=== PATIENT | male | born 1940 | race Caucasian/White ===

== ENCOUNTER 2016-06-23 05:04 | Inpatient (IN) | payer MEDICARE, BC ==
[2016-06-22 13:07] LABS: HEMATOCRIT 40.8 % (42.0-54.0); HEMOGLOBIN 13.9 g/dL (13.5-17.5); MCH 34.7 pg (26.0-34.0); MCHC 34.1 g/dL (31.0-37.0); MCV 101.7 fL (80.0-100.0); MEAN PLATELET VOLUME 9.3 fL (7.4-10.4); RBC 4.01 10x6/uL (4.20-6.10); RDW 16.7 % (11.5-14.5); WBC 9.8 10x3/uL (4.8-10.8)
[2016-06-22 13:15] LABS: ALBUMIN 3.6 g/dL (3.4-5.0); ANION GAP 12.5 mmol/L (8-16); APPEARANCE CLEAR (CLEAR); BILIRUBIN NEGATIVE (NEGATIVE); BILIRUBIN - TOTAL 0.67 mg/dL (0.2-1.3); CALCIUM 8.9 mg/dL (8.5-10.1); COLOR YELLOW (YELLOW); CREATININE - SERUM 1.2 mg/dL (0.6-1.3); GLUCOSE NEGATIVE (NEGATIVE); KETONE NEGATIVE (NEGATIVE); LEUKOCYTE ESTERASE NEGATIVE (NEGATIVE); NITRITE NEGATIVE (NEGATIVE); POTASSIUM - SERUM 4.5 mmol/L (3.5-5.1); PROTEIN NEGATIVE (NEGATIVE); PROTEIN - SERUM 7.2 g/dL (6.4-8.2); UROBILINOGEN NORMAL (NORMAL)
[2016-06-22 13:18] LABS: INR 1.13 (0.85-1.17); PROTIME 14.3 SECONDS (11.6-15.0)
[2016-06-23] VITALS (46 sets, daily range): BP systolic 80–118; BP diastolic 45–81; Ht 172.7 cm; Wt 88.7 kg
[~2016-06-23] VITALS: Ht 172.7 cm; Wt 88.7 kg
[~2016-06-23 05:04] MED LIST: ALENDRONATE SOD70 MG PO; ANORO ELLIPTA1 EACH INH; BAYER CHEWABLE81 MG PO; CARAFATE1 G PO; CO Q-10200 MG PO; FISH OIL 1,2001 CAP PO; FLOMAX0.4 MG PO; GLUCOPHAGE850 MG PO; LISINOPRIL2.5 MG PO; LOPRESSOR25 MG PO; MAGNESIUM OXID420 MG PO; OMEGA-3100 MG PO; OMEPRAZOLE20 M1 PO; PROSCAR5 MG PO; PROTONIX40 MG PO; REFRESH TEARS15 ML EACH EYE; TESSALON PERLE100 MG PO; VITAMIN B-121000 MCG PO; VITAMIN D31000 UNIT PO; ZANTAC300 MG PO; ZOCOR40 MG PO
--- NOTE | 2016-06-23 13:11 | NUR ---
RECIEVED PT FROM OR. SEDATED, OPENS EYES TO VOICE. ON 10L SIMPLE MASK, RIGHT DL SC DRESSING C/D/I. INFUSING PER FLOWSHEET. RIGHT THORACTOMY DRESSING C/D/I. RIGHT LATERAL LOWER CHEST TUBE SITE C/D/I. ANT AND POST CT DRAINGING SANG DRAINAGE. ATTACHED TO 20CM SUCTION. LEFT RADIAL A-LINE IN PLACE WITH GOOD WAVE FORM. WRIST PROTECTOR IN PLACE. EXT WITH GOOD SENSTAION. TEDS/SCDS ON. SKIN ASSESSMENT WNL. ON AIR OVERLAY MATTRESS. WILL RECOVER PT UNTIL AWAKE. CALL LIGHT IN REACH. BED IN LOW POSITION.
--- NOTE | 2016-06-23 14:00 | NUR ---
FAMILY AT BEDSIDE. DR. HARVEY PROVIDED UPDATE.
--- NOTE | 2016-06-23 14:36 | NUR ---
Is the patient Alert and Oriented? No 0 * How many steps to enter\exit or inside your home? 2 0 * PCP [facility] MD 0 * Pharmacy FROM THE DE 0 * Preadmission Environment Home Alone 0 * ADLs Independent 0 * Equipment None 0 * List name and contact numbers for known caregivers / representatives who currently or will assist patient after discharge: SISTER: BARBI HARVEY [phone] DAUGHTER: SUZETTE PRIEST [phone] * Community resources currently utilized None 0 * Additional services required to return to the preadmission environment? No 0 * Can the patient safely return to the preadmission environment? Yes 0 * Has this patient been hospitalized within the prior 30 days at any hospital? No PATIENT IS POST OP LUNG RESECTION. HE IS STILL DROWSY. I SPOKE WITH HIS DAUGHTER, SUZETTE AND HIS SISTER, BARBI. PATIENT LIVES AT HOME ALONE. HIS SISTER STATES HE MAY COME STAY WITH HER AT DISCHARGE IF NEEDED. THEY TELL ME HE GOES TO MD AT THE [facility] CLINIC AND GETS HIS MEDS FROM THE [facility]. PATIENT HAS A KNEE BRACE HE USES NEEDED. HE HAS NEVER HAD HOME HEALTH. HER ARE 2 STEPS TO ENTER HIS SISTER'S HOME AND 4 STEPS TO ENTER HIS HOME. THEY ARE NOT AWARE OF ANY DISCHARGE NEEDS AT THIS TIME. CM TO FOLLOW AND EVALUATE AT DISCHARGE.
--- NOTE | 2016-06-23 16:00 | NUR ---
TURNED AND REPOSITIONED FOR COMFORT. CALL LIGHT IN REACH. BED IN LOW POSITION. WILL CONTINUE TO ASSESS.
--- NOTE | 2016-06-23 18:00 | NUR ---
NO CHANGES NOTED AT THIS TIME. WILL CONTINUE TO ASSESS.
--- NOTE | 2016-06-23 19:20 | NUR ---
ASSESSMENT COMPLETED. SEE ASSESSMENT FLOWSHEET. LETHARGIC BUT AWAKENS EASILY AND FOLLOWS COMMANDS. CAN MOVE ALL EXTREMITIES. RT SC CVL INFUSING MULTIPLE GTTS. WILL MONITOR.
--- NOTE | 2016-06-23 20:40 | NUR ---
2100 MEDS GIVEN WITH SIPS OF WATER. TURNED AND REPOSITIONED TO RT SIDE AFTER PULLING UP IN BED. I.S. DONE UP TO 1000ML. WILL MONITOR.
--- NOTE | 2016-06-23 21:45 | NUR ---
VISITOR AT BEDSIDE. UPDATE GIVEN. INFORMED TO SLOW DOWN ON ICE CONSUMPTION. WILL MONITOR.
--- NOTE | 2016-06-23 23:01 | NUR ---
NEW BAG OF WENDI GTT HUNG. EYES CLOSED UPON ENTERING. REASSESSMENT COMPLETED. SEE ASSESSMENT FLOWSHEET. WILL MONITOR.
[2016-06-24] VITALS (93 sets, daily range): BP systolic 82–151; BP diastolic 41–78
--- NOTE | 2016-06-24 00:10 | NUR ---
AWOKE. TURNED AND REPOSITIONED TO SUPINE POSITION. ICE CHIPS GIVEN PER REQUEST. IV PROTONIX SLOWLY GIVEN. WILL MONITOR.
--- NOTE | 2016-06-24 00:22 | NUR ---
DECREASED WENDI GTT TO 18ML/HR.
--- NOTE | 2016-06-24 02:15 | NUR ---
REPLACED O2 SENSOR ONTO FINGER. AWOKE. WANTING MORE ICE CHIPS. HALF CUP ICE CHIPS GIVEN. WILL CONTINUE TO MONITOR.
--- NOTE | 2016-06-24 04:00 | NUR ---
DECREASED WENDI GTT TO 15ML/HR. ICE GIVEN. WILL MONITOR.
--- NOTE | 2016-06-24 05:58 | NUR ---
AM LAB SPECIMEN DRAWN AND TAKEN TO LAB. PULLED UP IN BED AND TURNED TO RT SIDE. AM CARAFATE GIVEN. WILL MONITOR.
[2016-06-24 06:10] LABS: HEMOGLOBIN 11.4 g/dL (13.5-17.5); MCHC 33.5 g/dL (31.0-37.0); MCV 101.5 fL (80.0-100.0); MEAN PLATELET VOLUME 9.1 fL (7.4-10.4); RBC 3.35 10x6/uL (4.20-6.10); RDW 16.7 % (11.5-14.5); WBC 9.3 10x3/uL (4.8-10.8)
[2016-06-24 06:43] LABS: ALBUMIN 2.6 g/dL (3.4-5.0); ALKALINE PHOSPHATASE 49 U/L (46-116); ALT (SGPT) 23 U/L (10-68); CALC OSMOLALITY 282 mosm/kg (275-300); CALCIUM 7.2 mg/dL (8.5-10.1); CARBON DIOXIDE 27.2 mmol/L (21.0-32.0); CHLORIDE - SERUM 103 mmol/L (98-107); CREATININE - SERUM 0.9 mg/dL (0.6-1.3); GLUCOSE 190 mg/dL (74-106); POTASSIUM - SERUM 4.3 mmol/L (3.5-5.1); SODIUM 138 mmol/L (136-145); UREA NITROGEN 18 mg/dL (7-18); eGFR NON AFRICAN AMERICAN 88 mL/min (90-120)
--- NOTE | 2016-06-24 07:00 | NUR ---
REC'D CARE OF PT. A&O X3.
--- NOTE | 2016-06-24 07:50 | NUR ---
INITIAL ASSESSMENT COMPLETED. EPIDURAL. DRSG CD&I. BRENDA.FOLLOWS COMMANDS. WITH GOOD SENSATION IN LOWER EXT.PPP. DENIES PAIN. O2 AT 3L VIA NC. SATTING 96%. RR 24 EVEN AND UNLABORED. RIGHT THORACOTOMY INCISION. DRSG CD&I. RIGHT LATERAL CT X2 TO 20 CM SUCTION. INDICATOR + FOR SUCTION. SEROUSSANGEOUS RETURN X2 CANISTERS. EDISONG CD&I. TEDS.SCD'S. CRITICORE CORTES. PATENT WITH ADEQUATE URINE OUTPUT. CLWR. CPOC.
--- NOTE | 2016-06-24 09:21 | NUR ---
FAMILY AT BEDSIDE. UPDATED.
--- NOTE | 2016-06-24 10:23 | NUR ---
DR. KELLY AT BEDSIDE. HE CHECKED EPIDURAL AND CHANGED BASIL RATE TO 5 AND BOLUS AMOUNT TO 4.
--- NOTE | 2016-06-24 11:21 | NUR ---
DR. HARVEY AT BEDSIDE.
--- NOTE | 2016-06-24 12:13 | NUR ---
FAMILY AT BEDSIDE. UPDATED.
--- NOTE | 2016-06-24 12:21 | HP ---
PATIENT: CHARITY PALMER MEDICAL RECORD: [id number] ACCOUNT: [id number] LOCATION:[place] [address] : 41 ADMISSION DATE: 06/23/16 HISTORY AND PHYSICAL EXAMINATION CHARITY Hawley (75yo, M) ID# [id number]. Date/Time05/15/2016 11:[id number] Dept.[facility] [place]FREDDIE STAHL MDInsuranceMed Primary: MEDICARE B-AR: [employer] MEDICARE Insurance # : [id number] Referring Provider Name : TAMEKA MEHTA Employer Name : RETIRED Med Secondary: BCBS-AR: [employer] Insurance # : [id number] Employer Name : RETIRED Prescription: CMX - Member is eligible. Patient's Care Team Referring Provider (): TAMEKA MEHTA: [address] [place] [phone], , Referring Provider: TAMEKA MEHTA MD: [address] [place] [id number], , Patient's Pharmacies [facility] [address] (ERX): [phone] [facility] [id number], , Chief Complaint Lung cancer Problems Reviewed Problems Primary malignant neoplasm of right upper lobe of lung Squamous cell carcinoma, Right - upper lobe right lung Tobacco user Obstructive sleep apnea syndrome Hypertensive disorder Coronary arteriosclerosis Allergic rhinitis Moderate chronic obstructive pulmonary disease Gastroesophageal reflux disease Gastric ulcer Irritable bowel syndrome Osteoarthritis Osteoporosis Cough Medications Reviewed Medications alendronate 70 mg tablet Take 1 tablet(s) every week by oral route.04/10/[facility] JonesAnoro Ellipta 62.5 mcg-25 mcg/actuation powder for inhalation Inhale 1 puff(s) every day by inhalation route.05/15/16 Johana Stahl MDbenzonatate 100 mg eqnjist36/15/16 filledCaremarkcetirizine 10 mg tablet Take 1 tablet(s) every day by oral route.04/10/16 enteredSara Jonesfinasteride 5 mg tablet Take 1 tablet(s) every day by oral route.05/02/16 filledCaremarkFish Oil 100 mg-160 mg-1,000 mg capsule Take by oral route.04/05/16 enteredKattramaine Wilsonfluticasone 50 mcg/actuation nasal spray,aubxgresvn07/10/16 filledCaremarklisinopril 2.5 mg tablet HISTORY AND PHYSICAL [id number] CHARITY PALMER Take 1 tablet(s) every day by oral route.04/10/16 enteredSarah Jonesmagnesium 420mg daily04/10/16 enteredSarah JonesmetFORMIN 850 mg dnyxiv93/19/16 filledCaremarkmetoprolol tartrate 25 mg jrsemq71/18/16 filledCaremarkomeprazole 20 mg capsule,delayed pkmgpho86/01/16 filledCaremarkraNITIdine 300 mg /29/16 filledCaremarksimvastatin 40 mg dixekt66/07/16 filledCaremarksucralfate 1 gram jvheiw33/14/16 filledCaremarktamsulosin 0.4 mg iltdqen93/18/16 filledCaremarkAllergies Reviewed Allergies NKDAPast Medical History Reviewed Past Medical History Back Pain: Y Cancer: Y Coronary Artery Disease: Y - status post TPA in 2000 Diabetes: Y GERD: Y High Blood Pressure: Y Hyperlipidemia: Y Peptic Ulcer (stomach or duodenal): Y Sleep Apnea (CPAP/BPAP/O2): Y - CPAP Notes: IBS Surgical History Reviewed Surgical History Other - 2013 - right shoulder Other - 2013 - left hip Other - 2012 - right hip Other - 2005 - right knee Family History Reviewed Family History Mother- Malignant neoplastic diseaseFather- Heart disease - aneurysmBrother- Malignant neoplastic diseaseSocial History Reviewed Social History Smoking Status: Current every day smoker Smoker (1 PPD) (Notes: 50 years) Vitals 05/15/2016 11:32 am Age:75Wt:205 lbs BP:147/80 Ht:5 ft 8 inPulse:83 bpm RR:85M6Xyo:98% Room Air at RestBMI:31.2HPI 75-year-old white male with history of IBS, osteoporosis, OA, DM II, CAD - s/p [place] and TPA, Prostate disease, GERD, - s/p EGD and dilation, JEANNE on CPAP, and dx with Lung CA with RUL squamous cell CA and here for preop evaluation. Patient was diagnosed in March 2016 with lung biopsy done of [facility], seen by Dr. Mehta with PET scan done already and on CTX x 5, and follow-up PET scan J anuary 3, 2015. Patient had been smoking since age 15, one pack per day without secondhand smoke, patient had pneumonia as a teenager none recently and no history of bronchitis, no history of TB, no history of CHF, no history of PE or DVT, and no family h i story lung disease, no history of asbestos or chemicals. The patient does have history of sleep apnea on CPAP he uses 6-7 hours a night and seems to be refreshed in a.m. PFTs done on 04/04/16 shows FEV1 1.88 L or 69%, improved 8% with BD to 2.03 L or 75%, F EV1/FVC 50%, TLC 5.77 L or 83%, DLCO 16.9 mL/mmHg/min or 80%. CXR 04/25/16 shows no active disease viewed on PACs. Nuclear medicine quantitative lung scan showed left upper lung 27.9%, left lower lobe 26.8% (total Lt lung 54.6%) and right upper lung 14.3% , right lower lung 31.1% (total Rt 45.4%). Patient has increased shortness of breath over last few years, patient states worse HISTORY AND PHYSICAL [id number] PALMER,NASH with exercise or inclines, no nocturnal symptoms, weather changes does not adversely affect breathing, no PND no orthopnea, has oc casional leg edema and sleeps on one pillow, denies any wheezing, no chest pain, no pleurisy. Patient has chronic cough mostly nonproductive except for phlegm, no hemoptysis. Patient has some reflux and taking omeprazole or ranitidine. No fever, chills or night sweats, no weight loss. ROS Constitutional: Constitutional: no significant weight gain or loss and no fever, night sweats, or exercise intolerance. Eyes: Eyes: no irritation or vision change and dry eyes. ENMT: Ears: no ear pain and difficulty hearing. Nose: no frequent nosebleeds and nose/sinus problems. Mouth/Throat: no snoring, sore throat, bleeding gums, mouth ulcers, oral abnormalities, or teeth problems and dry mouth. Neck: Neck: no jugular vein distension or swollen glands. Cardiovascular: Cardiovascular: no palpitations, chest pain, arm pain on exertion, shortness of breath when lying down, or known heart murmur and shortness of breath when walking. Respiratory: Respiratory: no cough, wheezing, or coughing up blood and shortness of breath and sleep apnea. Gastrointestinal: Gastrointestinal: no vomiting, diarrhea, nausea, constipation, or abdominal pain and normal appetite and not vomiting blood. Genitourinary: Genitourinary: no incontinence, hematuria, or difficulty urinating and incr eased urinary frequency. Musculoskeletal: Musculoskeletal: no muscle aches or weakness, no swelling in the extremities, and arthralgias/joint pain and back pain. Integumentary: Skin: no jaundice, rashes, or abnormal mole and dry skin. Neurologic: Neurologic: no weakness, numbness, seizures, dizziness, headaches, or loss of consciousness and restless legs. Psychiatric: Psych: no depression, sleep disturbances, or alcohol abuse and feeling safe in relationship. Endocrine: Endocrine: no fatigue and hair loss. Hematologic/Lymphatic: Hematologic/Lymphatic no swollen glands and easy bruising. Allergic/Immunologic: Allergy/Immunologic: no itching, hives, or frequent sneezing and runny nose and sinus pressure. Documents for Discussion N/A Physical Exam Patient is a 75-year-old male. Constitutional: General Appearance: well developed and overweight. Level of Distress: no acute distress. Ambulation: ambulating normally. HISTORY AND PHYSICAL [id number] PALMERCHARITY Ears: Cerumen negative. Canal: no erythema or swelling. Tympanic Membrane: no bulging or fluid and perforated. Nasal: Nasal Mucosa: edematous and irritated and no discharge. Septum: not markedly deformed. Oropharynx: Lips, Teeth, and Gums normal lips, upper dentures, and lower dentures. Oral Mucosa no ulcer, mass, inflammation, swelling, or leukoplakia and moist. Palate: normal hard palate and soft palate. Tongue: no erythema, lesions, enlargement, or swelling. Tonsils: no enlargement or lesions. Posterior Pharynx no enlargement, erythema, exudate, ulcers, mass, or white patches and cobblestoning. Neck: Neck: supple, trachea midline, no masses, and Full ROM. Thyroid: no enlargement or nodules and non-tender. Jugular Veins: no jugular venous distention or jolly a waves present and normal jugular venous pressure. Lungs: Respiratory effort : unlabored. Inspection: normal curve and chest wall expansion; no deformity, tenderness, or swelling; and tactile fremitus present and equal on both sides. Auscultation: no wheezing, rales/crackles, or rhonchi and decreased breath sounds,bilateral,bases. Percussion: no dullness, flatness, or hyperresonance. Cardiovascular: Precordial Exam: non displaced focal PMI. Heart Rate And Rhythm: normal heart rate and rhythm. Heart Sounds: no gallop, click, physiologically split S2, or pericardial friction rub and normal s1. Systolic Murmur: no systolic murmurs. Diastolic Murmur: no diastolic murmurs. Observation/Palpation of peripheral vascular system: no cyanosis or varicosity changes and normal dorsalis pedis and posterior tibialis. Abdomen: Inspection and Palpa tion: no tenderness or masses and soft and non-distended. Liver: non-tender and no hepatomegaly. Spleen: non-tender and no splenomegaly. Bowel Sounds: normal and no abdominal bruits. Lymphatic: no cervical lymph enlargement, axillary LAD, inguinal LAD, fe moral LAD, supraclavicular LAD, or popliteal LAD. Musculoskeletal:: Motor Strength and Tone: normal bulk, tone, and motor strength. Gait and Station: normal gait, station, and tandem gait. Joints, Bones, and Muscles: no contractures, malalignment, tenderne ss, scoliosis, kyphosis, or bony abnormalities and normal movement of all extremities. Extremities: Inspection/Palpation of digits and nails: no clubbing, cyanosis, petechiae, ischemia, edema, or nodular lesions. Skin: Inspection and palpation: no rash, lesions, jaundice, ulcer, erythema, or induration and normal turgor. Neurologic: Mental Status/Orientation: oriented to person, place, problem/situation, and time. Mood/Affect: normal mood and affect. Sensation sensation normal. Cranial Nerves cranial nerves II - XII intact. Deep Tendon Reflexes upper extremities positive and lower extremities positive. Assessment / Plan 1. Primary malignant neoplasm of right upper lobe of lung - NSCLC Lung CA w ith RUL squamous cell CA diagnosed in March 2016 with lung biopsy done of [facility], seen by Dr. Mehta with PET scan done already and on CTX x 5, and follow-up PET scan June 06, 2015. PFTs done on 04/04/16 shows FEV1 1.88 L or 69%, improved 8% w i th HISTORY AND PHYSICAL [id number] DO SPENCERYLE BD to 2.03 L or 75%, FEV1/FVC 50%, TLC 5.77 L or 83%, DLCO 16.9 mL/mmHg/min or 80%. CXR 04/25/16 shows no active disease viewed on PACs. Nuclear medicine quantitative lung scan showed left upper lung 27.9%, left lower lobe 26.8% (total Lt lung 54.6%) a nd right upper lung 14.3%, right lower lung 31.1% (total Rt 45.4%). Should tolerate RULobectomy from pulmonary standpoint. Obtain CT/PET results. C34.11: Malignant neoplasm of upper lobe, right bronchus or lung 2. Squamous cell carcinoma - NSCLC Lung CA with RUL squamous cell CA diagnosed in March 2016 with lung biopsy done of [facility], seen by Dr. Mehta with PET scan done already and on CTX x 5, and follow-up PET scan June 06, 2015. PFTs done on 04/04/16 shows FEV1 1.88 L or 6 9 %, improved 8% with BD to 2.03 L or 75%, FEV1/FVC 50%, TLC 5.77 L or 83%, DLCO 16.9 mL/mmHg/min or 80%. CXR 04/25/16 shows no active disease viewed on PACs. Nuclear medicine quantitative lung scan showed left upper lung 27.9%, left lower lobe 26.8% (total Lt lung 54.6%) and right upper lung 14.3%, right lower lung 31.1% (total Rt 45.4%). Should tolerate RULobectomy from pulmonary standpoint. Obtain CT/PET results. C80.1: Malignant (primary) neoplasm, unspecified 3. Moderate chronic obstructive pulmonary disease - PFTs done on 04/04/16 shows FEV1 1.88 L or 69%, improved 8% with BD to 2.03 L or 75%, FEV1/FVC 50%, TLC 5.77 L or 83%, DLCO 16.9 mL/mmHg/min or 80%. CXR 04/25/16 shows no active disease viewed on PACs. Nuclear medicine quantitative lung scan s howed left upper lung 27.9%, left lower lobe 26.8% (total Lt lung 54.6%) and right upper lung 14.3%, right lower lung 31.1% (total Rt 45.4%). Add Anoro qd, and check A1AT level. J44.9: Chronic obstructive pulmonary disease, unspecified Anoro Ellipta 62.5 mcg-25 mcg/actuation powder for inhalation - Inhale 1 puff(s) every day by inhalation route. Qty: 1 unit(s) Refills: 5 Pharmacy: N/A [id number] (AAT) PHENOTYPE, SERUM [id number] (AAT), QUANTITATIVE, SERUM 4. Allergic rhinitis - On Flonase qd, Afrin bid, and saline nasal. J30.9: Allergic rhinitis, unspecified ALLERGIES: CARE INSTRUCTIONS MANAGING YOUR ALLERGIES: CARE INSTRUCTIONS 5. Cough - On Tessalon tid and add Mucinex DM bid. R05: Cough COUGH: CARE INSTRUCTIONS 6. Gastroesophageal reflux disease - On omeprazole 20 mg daily, ranitidine 300 mg daily at bedtime, Carafate 1 g 4 times a day. K21.9: Gastro-esophageal reflux disease without esophagitis GASTROESOPHAGEAL REFLUX DISEASE (GERD): CARE INSTRUCTIONS 7. Obstructive sleep apnea syndrome - The patient does have history of sleep apnea on CPAP he uses 6-7 hours a night and seems to be refreshed in a.m. G47.33: Obstructive sleep apnea (adult) (pediatric) SLEEP APNEA: CARE INSTRUCTIONS 8. Tobacco user - Discussed cessation. Z72.0: Tobacco use HISTORY AND PHYSICAL [id number] CHARITY PALMER 9. Irritable bowel syndrome K58.9: Irritable bowel syndrome without diarrhea IRRITABLE BOWEL SYNDROME: CARE INSTRUCTIONS 10. Osteoporosis M81.0: Age-related osteoporosis without current pathological fracture OSTEOPOROSIS: CARE INSTRUCTIONS 11. Osteoarthritis M19.90: Unspecified osteoarthritis, unspecified site ARTHRITIS: CARE INSTRUCTIONS OSTEOARTHRITIS: CARE INSTRUCTIONS 12. Hypertensive disorder I10: Essential (primary) hypertension ELEVATED BLOOD PRESSURE: CARE INSTRUCTIONS 13. Coronary arteriosclerosis I25.10: Atherosclerotic heart disease of [place] coronary artery without angina pectoris 14. Gastric ulcer - S/P EGD and dilation. K25.9: Gastric ulcer, unspecified as acute or chronic, without hemorrhage or perforation Patient Instructions 1. use inhalers and meds daily. 2. try to stop smoking. 3. followup in 4 weeks. 4. get lab as instructed. 5. Call or see sooner if needed. Discussion Notes Discussed CXR, Lung Scan findings and treatment with pt. Return to Office Víctor Harvey MD for Office Visit 15 at [facility] on 06/15/2016 at 11:00 AM Freddie Stahl MD for Office Visit 15 at [facility] on 07/11/2016 at 09:30 AM VÍCTOR HARVEY MD at 1221 CC: [id number] DICTATION DATE: 05/15/16 1115 FUR DRY CLEANER HAND: JAME 06/23/16 0850 ADM IN [place] [id number] [place] [address]
--- NOTE | 2016-06-24 12:21 | OP ---
PATIENT NAME: CHARITY PALMER MEDICAL RECORD: [id number] :42 LOCATION:[facility] D.2303 ADMISSION DATE:06/23/16 SURGEON: VÍCTOR HARVEY MD DATE OF OPERATION: 06/23/2016 SURGEON: Víctor Harvey MD ANESTHESIA: General endotracheal, Dr. Weeks. OPERATIONS PERFORMED: 1. Right upper lobe resection. 2. Right radical anterior superior mediastinal lymphadenectomy. 3. Mediastinal lymphadenectomy. 4. Flexible fiberoptic bronchoscopy. PREOPERATIVE DIAGNOSIS: Non-small cell carcinoma, right upper lobe. POSTOPERATIVE DIAGNOSIS: Non-small cell carcinoma, right upper lobe. INDICATION FOR OPERATION: Non-small cell carcinoma, right upper lobe, status post chemotherapy. ESTIMATED BLOOD LOSS: 200 mL. FINDINGS OF THE OPERATION: The right upper lobe tumor was very near the bronchus intermedius. The tumor was also attached to the pulmonary artery that required tangential excision. Samples were taken from level R8, level R10, right radical anterior superior mediastinal lymphadenectomy, level R7. DESCRIPTION OF PROCEDURE: After informed consent, adequate preoperative medication evaluation, the patient was brought to the operating room, placed on the table in the supine position. After induction of general endotracheal anesthesia and application of appropriate monitoring devices, the patient underwent flexible fiberoptic bronchoscopy and placement of a double lumen tube. The patient was turned in a left lateral decubitus position. The right chest was prepped and draped in a sterile field, utilizing Betadine scrub, alcohol, and Betadine solution. A Betadine-impregnated drape was also used. A small posterolateral thoracotomy incision was made and dissection was carried down the fascia. Hemostasis was maintained with electrocautery. The fifth interspace was identified and opened. The chest was examined. There were adhesions from the upper lobe to the lateral chest wall that were lysed with electrocautery. The hilum was then mobilized. The azygos vein was divided. The trachea to the right main stem bronchus was dissected. Attention was then turned toward the fissure. He had complete fissures making the dissection of the pulmonary artery and the fissure possible due to the proximal area of the tumor. The venous drainage from the middle lobe was identified and the upper lobe veins were divided with an Endo-SHANAE stapler after sharp dissection. Attention was then turned toward the pulmonary artery. The pulmonary artery was dissected from the superior aspect to the hilum. The branch to the middle lobe was also identified and protected. The 3 vessels to the superior portion of the upper lobe were dissected and divided with an Endo-SHANAE stapler. The vessel to the inferior portion of the upper lobe was densely adherent to the tumor requiring a tangential resection of the pulmonary artery at this level, there was still good OPERATIVE REPORT [id number] PALMER,NASH flow with minimal stenosis. Attention was then turned toward the bronchus. The bronchus intermedius was dissected to the tumor and the tumor was elevated. The tumor was approximating the bronchus intermedius; however, it was not invading the structures. Utilizing a 4.8 Endo-SHANAE, the bronchus to the upper lobe was divided. The hilum was irrigated, hemostasis assured. Nodes were then removed from level 8 and 7. There were no nodes at level 9. The lymph nodes within the hilum of the lung were sampled as level R10. Attention was then turned toward the anterior superior mediastinum. Utilizing sharp and blunt dissection as well as the Harmonic scalpel, the lymphadenectomy was performed. Clips were placed on the lymphatics. The wound was irrigated with copious amounts of antibiotic solution and normal saline. There was no active bleeding. Instrument count and sponge counts were correct times 2. One 32 chest tube was placed anteriorly and superiorly and one posteriorly and inferiorly. The chest was again irrigated. Instrument count and sponge count were correct times 2. The chest was closed in layers utilizing #2 Vicryl pericostal sutures, #1 Vicryl on the muscle, 2-0 Vicryl on the subcutaneous tissue and skin approximated with skin ry. Sterile dressings were applied. The patient tolerated the procedure and was turned in a supine position, underwent flexible fiberoptic bronchoscopy. The bronchus intermedius was opened and there were no blood clots. The patient was then extubated and transferred to the ICU in satisfactory condition. TRANSINT:[id number] Voice Confirmation ID: [id number] DOCUMENT ID: [id number] VÍCTOR HARVEY MD at 1221 CC: [id number] DICTATION DATE: 06/23/16 1236 BUSINESS PROCESS ANALYST: 06/23/16 1508 ADM IN [place] [address] [place] [address]
--- NOTE | 2016-06-24 12:29 | NUR ---
WENDI BEING TITRATED TO EFFECT.
--- NOTE | 2016-06-24 15:00 | NUR ---
FAMILY AT BEDSIDE. UPDATED.
--- NOTE | 2016-06-24 18:03 | NUR ---
FAMILY AT BEDSIDE. UPDATED.
--- NOTE | 2016-06-24 19:06 | NUR ---
I GAVE ALL HOME MEDS TO SISTER AND SHE TOOK THEM HOME.
--- NOTE | 2016-06-24 19:20 | NUR ---
ASSESSMENT COMPLETED. SEE ASSESSMENT FLOWSHEET. PRESSURE BAG EMPTY. NEW BAG OF NS 500ML BAG HUNG AND DISCONNECTED FROM PATIENT TO FLUSH. RECONNECTED AND WORKING PROPERLY. REPORTS HAVING MORE PAIN TODAY AFTER THEY CHANGED HIS EPIDURAL SETTINGS. DENIES CURRENT PAIN. ABLE TO MOVE ALL EXTREMITIES. DENIES NUMBNESS OR TINGLING. MID UPPER BACK PUNCTURE SITE FROM EPIDURAL WNL. SEE ASSESSMENT FOR FURTHER DETAILS. WILL MONITOR.
--- NOTE | 2016-06-24 20:30 | NUR ---
PARTIAL POSTERIOR BATH GIVEN AND LINENS CHANGED DUE TO WRINKLES AND SIDE WAYS IN THE BED. PULLED UP AND REPOSITIONED FOR COMFORT. DECREASED WENDI TO 8ML/HR.
--- NOTE | 2016-06-24 21:06 | NUR ---
PO MEDS GIVEN EXCEPT FOR LOPRESSOR. REPORTS HE TAKES IT AT HOME FOR B/P. ON DOPAMINE AND WENDI GTTS, WILL HOLD FOR NOW AND MONITOR.
--- NOTE | 2016-06-24 22:00 | NUR ---
WENDI GTT @ 6ML/HR.
--- NOTE | 2016-06-24 23:10 | NUR ---
REASSESSMENT COMPLETED. SEE ASSESSMENT FLOWSHEET. DENIES NEEDS. WHEEZES HEARD THROUGHOUT LUNG LOBE CHOWDARY. COUGHING AND DEEP BREATHING DONE ON HIS OWN. WILL MONITOR.
[2016-06-25] VITALS (47 sets, daily range): BP systolic 90–140; BP diastolic 47–82
--- NOTE | 2016-06-25 01:10 | NUR ---
EYES CLOSED. NO ACUTE DISTRESS NOTED. WILL MONITOR.
--- NOTE | 2016-06-25 02:00 | NUR ---
WENDI GTT DECREASED TO 3ML/HR THEN TURNED OFF.
--- NOTE | 2016-06-25 03:15 | NUR ---
PORTABLE CHEST XRAY COMPLETED. REASSESSMENT COMPLETED. SEE ASSESSMENT FLOWSHEET. RT LATERAL CHEST TUBE DRSG CHANGED. CLEANSED WITH BETADINE OINTMENT, COVERED WITH DRAIN SPONGES, 4X4'S AND TEGADERMS X2. RT SC CVL DRSG CHANGED UNDER STERILE TECHNIQUE. CONVERSATION ABOUT HIS AND THEN ABOUT HOW HE FOUND HIS LUNG TUMOR. TURNED AND REPOSITIONED TO RT SIDE AFTER XRAY. PRODUCTIVE SPUTUM-YELLOW IN COLOR. I.S. AND BREATHING TREATMENT DONE WITH RNeo GARCIAITA AT SAME TIME. WILL MONITOR.
--- NOTE | 2016-06-25 04:30 | NUR ---
A-LINE ALARMING. NOT WORKING PROPERLY. PULLED BACK 2ML OF BLOOD FROM A-LINE AND FLUSHED AND NOW WORKING PROPERLY. WILL MONITOR.
[2016-06-25 05:45] LABS: HEMATOCRIT 30.4 % (42.0-54.0); HEMOGLOBIN 10.2 g/dL (13.5-17.5); MCH 34.1 pg (26.0-34.0); MCHC 33.6 g/dL (31.0-37.0); MCV 101.7 fL (80.0-100.0); MEAN PLATELET VOLUME 8.9 fL (7.4-10.4); RBC 2.99 10x6/uL (4.20-6.10); RDW 16.5 % (11.5-14.5); WBC 10.2 10x3/uL (4.8-10.8)
[2016-06-25 06:04] LABS: ALBUMIN 2.2 g/dL (3.4-5.0); ALKALINE PHOSPHATASE 50 U/L (46-116); ALT (SGPT) 20 U/L (10-68); BILIRUBIN - TOTAL 0.68 mg/dL (0.2-1.3); CALC OSMOLALITY 272 mosm/kg (275-300); CARBON DIOXIDE 25.5 mmol/L (21.0-32.0); CHLORIDE - SERUM 100 mmol/L (98-107); CREATININE - SERUM 0.9 mg/dL (0.6-1.3); GLUCOSE 206 mg/dL (74-106); POTASSIUM - SERUM 4.1 mmol/L (3.5-5.1); PROTEIN - SERUM 6.1 g/dL (6.4-8.2); SODIUM 134 mmol/L (136-145); eGFR NON AFRICAN AMERICAN 88 mL/min (90-120)
[2016-06-25 06:09] LABS: UREA NITROGEN 11 mg/dL (7-18)
--- NOTE | 2016-06-25 07:00 | NUR ---
REC'D CARE OF PT. A&O X3. DENIES NEEDS.
--- NOTE | 2016-06-25 07:37 | NUR ---
INITIAL ASSESSMENT COMPLETED. ON 3L O2 VIA NC. RR 24 EVEN AND UNLABORED. SATTING 94%. ENCOURAGED USE OF IS AND COUGH AND DEEP BREATH. RIGHT SCDL. CVP BEING MONITORED AT DISTAL PORT. LEVELED AND ZEROED. CVP 6. SEE IV FLOW SHEET FOR DRIPS/INFUSIONS. THORACOTOMY INCISION CD&I. CT X2 TO 20 CM SUCTION. EPIDURAL SITE, CD&I. DENIES PAIN. PPP. GUTIERREZ. WITH GOOD SENSATION IN LOWER EXT. CRITICORE SOPHIA PATENT TO GRAVITY. CPOC. CLWR. SEE ASSESSMENT FLOW SHEET FOR ADDITONAL ASSESMENT.
--- NOTE | 2016-06-25 09:00 | NUR ---
FAMILY AT BEDSIDE. UPDATED.
--- NOTE | 2016-06-25 11:46 | NUR ---
DECREASED DOPAMINE TO 4 MCG. SBP 140'S
--- NOTE | 2016-06-25 14:40 | NUR ---
LEFT RADIAL SAURABH DC'D WITH TIP INTACT.
--- NOTE | 2016-06-25 14:57 | NUR ---
NO S/S OF BLEEDING AT DC'D LEFT RADIAL SAURABH SITE.
--- NOTE | 2016-06-25 17:35 | NUR ---
SBP 80. WENDI STARTED AT 15CC PER HOUR.
--- NOTE | 2016-06-25 19:00 | NUR ---
REPORT RECIEVED, SHIFT ASSESSMENT COMPLETE, PT IS ALERT AND ORIENTED, ON 3L NC WITH 98% O2 SAT. WHEEZES AND CRACKLES HEARD IN B/L UPPER LOBES, DIMINISHED IN B/L LOWER LOBES, S1S2, CM-NSR, PATENT RIGHT SC CVL WITH PLASMALYTE AND WENDI INFUSING VIA PUMP, RIGHT LATERAL CHEST DRSG IS CDI, RIGHT CHEST TUBES X2, SEROUS DRAINAGE NOTED, NO AIR LEAK, DRSG CDI, PATENT EPIDURAL SITE TO UPPER BACK, NO LEAK NOTED, NO C/O OF PAIN AT THIS TIME, ABDOMEN IS DISTENDED WITH HYPO BS, PATENT F/C WITH YELLOW UOP, TEDS/SCDS NOTED, ALL PPP, VSS, CALL LIGHT IN REACH
--- NOTE | 2016-06-25 21:00 | NUR ---
FAMILY AT BEDSIDE, UPDATE GIVEN
--- NOTE | 2016-06-25 23:06 | NUR ---
REASSESSMENT COMPLETE, NO CHANGES NOTED, COMPLETE BATH AND LINEN CHANGE, DRSG CHANGED TO CHEST TUBES, PT TOLERATED WELL, VSS, CALL LIGHT IN REACH
[2016-06-26] VITALS (24 sets, daily range): BP systolic 94–146; BP diastolic 50–85
--- NOTE | 2016-06-26 01:00 | NUR ---
RESTING COMFORTABLY AT THIS TIME, VSS, CALL LIGHT IN REACH
--- NOTE | 2016-06-26 03:03 | NUR ---
REASSESSMENT COMPLETE, NO CHANGES NOTED, PT RESTING AT THIS TIME, VSS, CALL LIGHT IN REACH
--- NOTE | 2016-06-26 06:06 | NUR ---
PT C/O OF NAUSEA, ORDERED ZOFRAN GIVEN
[2016-06-26 06:29] LABS: HEMATOCRIT 29.7 % (42.0-54.0); HEMOGLOBIN 9.9 g/dL (13.5-17.5); MCHC 33.3 g/dL (31.0-37.0); MCV 102.1 fL (80.0-100.0); MEAN PLATELET VOLUME 9.5 fL (7.4-10.4); RBC 2.91 10x6/uL (4.20-6.10); WBC 9.3 10x3/uL (4.8-10.8)
[2016-06-26 06:53] LABS: % SATURATION 9 % (15-55); IRON 16 ug/dl (35-150); TOTAL IRON BIND CAPACITY 170 ug/dl (260-445); UNSAT IRON BIND CAPACITY 154 ug/dl (150-375)
[2016-06-26 07:05] LABS: ALBUMIN 2.2 g/dL (3.4-5.0); ALKALINE PHOSPHATASE 54 U/L (46-116); ALT (SGPT) 16 U/L (10-68); BILIRUBIN - TOTAL 0.56 mg/dL (0.2-1.3); CALC OSMOLALITY 268 mosm/kg (275-300); CALCIUM 7.5 mg/dL (8.5-10.1); CHLORIDE - SERUM 99 mmol/L (98-107); CREATININE - SERUM 0.9 mg/dL (0.6-1.3); FERRITIN 324 ng/mL (3-244); GLUCOSE 159 mg/dL (74-106); POTASSIUM - SERUM 4.1 mmol/L (3.5-5.1); PROTEIN - SERUM 6.4 g/dL (6.4-8.2); SODIUM 133 mmol/L (136-145); UREA NITROGEN 13 mg/dL (7-18); eGFR NON AFRICAN AMERICAN 88 mL/min (90-120)
--- NOTE | 2016-06-26 09:37 | NUR ---
Nutrition follow-up: Diet: ADA consistent CHO no concentrated sweets PO intake ~50% of some meals Pt now with nausea; NGT placed due to distented abdomen Labs reviewed Wt: 148# RDN following.
--- NOTE | 2016-06-26 10:45 | NUR ---
0800 AM ASSESMENT IS COMPLETE SEE FLOW SHEET FOR FINDINGS.. PT IS AWAKE AND C/O INDIGESTION.. 0830 DR HARVEY N TO SEE PT AND UPDATE GIVEN.. 0845 CT DCd AT THIS TIME BY DR HARVEY AND ORDERS RECIEVVED.. 0850 DR KELLY IN TO SEE PT AND EPIDURAL CATH DCd AT THIS TME.. 0900 18FR NGT PLACED AND IMMMIDIATE RETURN OF BROWN LIQUID RETURN INTO SUCTION CANNISTER 1000 CC.. ABDOMINAL X RAY DONE.. 0915 DR JORDAN OFFICE CALLED AND NOTIFIED OF CONSULT.. DR CALDWELL ACADEMY EDUCATION DIRECTOR .. [address] CALDWELL CALLED UNIT AND UPDATED AT THIS TIME RE CONSULT.. 1030 MEDS GIVEN AND NGT CLAMPED.. SUPPOSITORY GIVEN PER ORDER.. 1050 PHYSICAL THERAPY HERE TO AMBULATE PT TO CHAIR AT THE BEDSIDE..
--- NOTE | 2016-06-26 15:56 | NUR ---
1130 PT WITH LARGE LIQUID STOOL IN BEDDPAN PT REMAINS IN [place] AT BEDSIDE,, 1200 FAMILY IN TO SEE PT.. FSBS WITH INSULIN COVER 1330 BACK INTO THE BED WITH PHYSICAL THERAPY HELP.. 1430 SLEEPING EASILY RROUSED AND MEDS GIVEN.. 1500 VISITOR AT BEDSIDE.. 1545 REQUEST BEDPAN..
--- NOTE | 2016-06-26 18:25 | NUR ---
1600 LIQUID STOOL WITH FORMEEDD STOOL IN ANG.. 1700 NPO FOR DINNER I AND O DONE 1800 FAMILY IN TO SEE PT..
--- NOTE | 2016-06-26 19:35 | NUR ---
REPORT REC'D AND CARE ASSUMED, REC'D PT ON O2 @ 2 LITERS VIA NC, PT AWAKE, ALERT, ORIENTED X 3, LEFT NARE NGT TO LIWS WITH DARK BROWN RETURN NOTED, PLACEMENT VERIFIED VIA SM AIR BOLUS AUSCULTATED, BS ABSENT AT THIS TIME, ABD SLIGHTLY DISTENDED, PT DENIES PAIN, RIGHT LATERAL DRSG CDI TO PREVIOUS CT INSERTION SITE, RIGHT LATERAL INCISION CDI, RDLSCL DRSG CDI WITH PLASMALYTE @ 30CC/HR AND MORPHINE WOOL CLASSER 0.5MG Q10MIN WITH 12MG Q4HR LOCKOUT, CRITICORE CORTES IN DRAINING CLEAR YELLOW URINE, BILAT SCDS AND TEDS ON, PPP, AIR OVERLAY MATTRESS IN USE, PT DENIES PAIN OR NEEDS, SR UP X 2, CALL LIGHT IN REACH.
--- NOTE | 2016-06-26 20:15 | NUR ---
DR. CALDWELL AT SPEAKING WITH PATIENT, NEW ORDERS REC'D.
--- NOTE | 2016-06-26 20:40 | NUR ---
PT STATES "THAT DOCTOR IS NOT DOING ANYTHING UNTIL TOMORROW BRING ME A CUP OF COFFEE", EXPLAINED TO PT HE COULD HAVE NOTHING TO EAT OR DRINK AT THIS TIME, PT ARGUMENTATIVE, STATES " I HAVEN'T EATEN IN 2 DAYS AND I AM GOING TO EAT"
--- NOTE | 2016-06-26 20:50 | NUR ---
ENTERED PT'S ROOM FOR FSBS FOUND THAT PT HAD REMOVED NGT, PT STATES " IT CAN GO BACK IN TOMORROW BUT IT IS BUGGING ME, ITCHING AND MAKING ME COUGH", PT STATES FRUSTRATION IN IT TAKING SO LONG FOR MD TO COME SEE HIM, INSTRUCTED PT NGT WAS TO REMAIN IN OVERNIGHT TO KEEP ABDOMEN DECOMPRESSED, PT STATES " I FEEL MUCH BETTER NOW, BRING ME SOMETHING TO EAT" PT REFUSING TO HAVE NGT PLACED STATES " ABSOLUTELY NOT!"
--- NOTE | 2016-06-26 21:05 | NUR ---
DR. PAULETTE AYALA.
--- NOTE | 2016-06-26 21:15 | NUR ---
FAMILY AT BS, UPDATE PROVIDED AND EXPLANATION PROVIDED TO PT AND FAMILY REGARDING NPO ORDER.
--- NOTE | 2016-06-26 21:20 | NUR ---
SPOKE WITH DR. CALDWELL REGARDING PT REMOVING NGT AND REFUSING TO ALLOW ANOTHER ONE INSERTED, OKAY REC'D TO LEAVE NGT FOR NOW, MAKE PT STRICT NPO AND REPLACE NGT IF PT STARTED VOMITTING, INFORMED PT OF CONVERSATION WITH MD, PT UPSET THAT HE MUST REMAIN NPO.
--- NOTE | 2016-06-26 21:40 | NUR ---
EVENING MEDS GIVEN WITH A FEW SIPS OF WATER, PT VERBALIZED UNDERSTANDING THAT NGT MUST BE REINSERTED IF PROBLEMS WITH NAUSEA AND VOMITTING ARISE.
--- NOTE | 2016-06-26 21:45 | NUR ---
CRITICORE SOPHIA BHATIA'Agustina PER ORDER, URINAL PROVIDED, PT TOLERATED WELL.
--- NOTE | 2016-06-26 23:40 | NUR ---
REASSESSMENT COMPLETED, PT RESTING QUIETLY IN BED WATCHING TV, ABD SEMISOFT, PT DENIES PAIN OR NAUSEA, THERMOSTAT ADJUSTED FOR COMFORT, SR UP X 2, CALL LIGHT IN REACH.
[2016-06-27] VITALS (18 sets, daily range): BP systolic 92–148; BP diastolic 49–87
--- NOTE | 2016-06-27 01:30 | NUR ---
URINAL EMPTIED OF 200CC CONCENTRATED URINE, PT RESTING ON RIGHT SIDE EYES CLOSED, VSS.
--- NOTE | 2016-06-27 03:30 | NUR ---
RADIOLOGY AT BS FOR AM CXR AND KUB, REASSESSMENT COMPLETED, PT REPOSITIONED UP IN BED, ABD SOFT, BS ACTIVE, PT DENIES PAIN OR NAUSEA.
--- NOTE | 2016-06-27 05:00 | NUR ---
PT REPOSITIONED UP IN BED FOR COMFORT, PT REQUESTING COFFEE AND BREAKFAST, EXPLAINED TO PT HE WAS STILL NPO AT THIS TIME.
[2016-06-27 05:38] LABS: BASOPHILS 0.3 % (0.0-2.0); EOSINOPHILS 2.8 % (0-7); HEMATOCRIT 27.5 % (42.0-54.0); HEMOGLOBIN 9.1 g/dL (13.5-17.5); IMMATURE GRANULOCYTES 0.1 % (0-5); LYMPHOCYTES 22.3 % (15-50); MCH 33.5 pg (26.0-34.0); MCHC 33.1 g/dL (31.0-37.0); MCV 101.1 fL (80.0-100.0); MONOCYTES 11.8 % (2-11); NEUTROPHILS 62.7 % (40-80); PLATELET COUNT 215 10x3/uL (130-400); RBC 2.72 10x6/uL (4.20-6.10); RDW 15.6 % (11.5-14.5); WBC 7.5 10x3/uL (4.8-10.8)
[2016-06-27 05:58] LABS: CALC OSMOLALITY 276 mosm/kg (275-300); CALCIUM 7.7 mg/dL (8.5-10.1); CARBON DIOXIDE 29.3 mmol/L (21.0-32.0); CHLORIDE - SERUM 102 mmol/L (98-107); CREATININE - SERUM 0.9 mg/dL (0.6-1.3); GLUCOSE 133 mg/dL (74-106); MAGNESIUM - SERUM 2.3 mg/dL (1.8-2.4); PHOSPHOROUS 1.7 mg/dL (2.5-4.9); POTASSIUM - SERUM 3.7 mmol/L (3.5-5.1); SODIUM 137 mmol/L (136-145); THYROID STIMULATING HORMONE 1.69 uIU/mL (0.36-3.74); UREA NITROGEN 14 mg/dL (7-18); eGFR NON AFRICAN AMERICAN 88 mL/min (90-120)
--- NOTE | 2016-06-27 06:30 | NUR ---
NO VISITORS IN AT THIS TIME
--- NOTE | 2016-06-27 10:55 | NUR ---
0800 AM ASSESMENT IS COMPLETE SEE FLOW SHEET FOR FINDINGS...PT IS AWAKE AND REQUESTING BREAKFAST DIET EXPLAINED TO PT THAT HE IS NPO DUE TO HIS ABDOMEN ISSUE .. PT IS VERY UNHAPPY AND VOCAL ABOUT NOT GETTING FOOD.. 0830 DR HARVEY IN TO SEE PT.. UPDATE IS GIVEN.. PT VOICED HIS DISPLEASURE ABOUT DIET TO DR HARVEY ALSO DR HARVEY EXPLAINED TO PT THE HE HAS ABDOMINAL ISSUES AND KUB DONE THIS AM SHOWS AIR AND ILLEOUS.. [address] IN TO [address] PT[address] DR HARVEY SPOKE WITH .. PHYSICAL THERAPY IN AND AMBULATED PT IN UNIT.. SITTING IN CHAIR.. 1000.. GONE FROM BEDSIDE.. PT REMAINS IN CHAIR.. 1110 BACK IN BED WITH ASSISTENCE..
--- NOTE | 2016-06-27 11:12 | NUR ---
1110 PT STATES THAT HE DOES NOT WANT TO SEE DR CALDWELL A CONSULT.. EXPLAINED TO HIM HOW THE CALL WORKS FOR THE OFFICE AND HE REQUEST THAT I CALL OFFICE AND TELL THEM HE WANTS TO SEE JULIAN TODAY OR HE PAUL LIKE TO CHANGE GI .
--- NOTE | 2016-06-27 12:40 | NUR ---
1200 MEDS GIVEN AND INSULIN COVER FOR FSBS .. FAMILY IN TO SEE PT.. 1300 FAMILY GONE FROM BEDSIDE.. PT RESTING WITHOUT C/O OR CHANGES
--- NOTE | 2016-06-27 17:21 | NUR ---
1400 AMBULATED WITH PHYICAL THERAPY.. BACK INTO CHAIR AT BEDSIDE.. 1500 FAMILY IN TO SEE PT.. UPDATE GIVEN.. PT IS INSISTING ON EATING AND WANTS TO SEE DR JORDAN NOW.. EXPLAINED TO PT AND FAMILY WHY PT CAN NOT EAT AT THIS TIME AND THAT DR JORDAN MAKES HER ROUNDS AFTER CLINIC HOURS.. FAMILY SEEMS TO UNDERSTAND PT REMAINS VERY IRRITATED THAT HE CANNOT EAT AND THAT DR WILL BE AROUND SO LATE IN THE DAY 1600 ASSISTED BACK INTO THE BED.. 1700 MEDS GIVEN AND FSBS WITHOUT INSULIN COVER AT THIS TIME..
--- NOTE | 2016-06-27 17:48 | NUR ---
174 DR JORDAN IN TO SEE PT .. BROOUGHT INTO UNIT AND DR SPEAKING WITH BOTH PT AND ..
--- NOTE | 2016-06-27 19:35 | NUR ---
REC'D PT RESTING IN BED O2 @ 2 LITERS VIA NC, AWAKE, ALERT, ORIENTED, PT COMPLAINS OF BEING HUNGRY, STATES " MAYBE I WILL SURVIVE THE NIGHT", RDLSCL DRSG CDI WITH PLASMALYTE @ 30CC/HR AND MORPHINE PHYSICIAN GENERAL INTERNAL MEDICINE 0.5 MG Q10MIN 12MG Q4HR LOCKOUT, PT NOT USING MORPHINE PHYSICIAN GENERAL INTERNAL MEDICINE, STATES " I AM NOT HURTING I DON'T NEED IT", RIGHT UPPER LATERAL INCISION OPEN TO AIR, RIGHT LATERAL INCISION TO PREVIOUS CT INSERTION SITE DRSG CDI, BILAT TEDS/SCDS RECONNECTED, PT DENIES FURTHER NEEDS.
--- NOTE | 2016-06-27 20:25 | NUR ---
DULCOLAX SUPP GIVEN MO ORDERED, PT ASSISTED TO REPOSITION FOR COMFORT, PT COMPLAINS OF BEING HOT, THERMOSTAT ADJUSTED FOR COMFORT.
--- NOTE | 2016-06-27 21:00 | NUR ---
EVENING MEDS GIVEN, AT BS, UPDATE GIVEN AND QUESTIONS ANSWERED, PT DENIES NEEDS.
--- NOTE | 2016-06-27 23:00 | NUR ---
REASSESSMENT COMPLETED, PT RESTING QUIETLY WATCHING TV, VSS, PT DENIES NO PAIN, COUGHNING AND DEEP BREATHING DONE WITH PATIENT, ASSISTED TO REPOSITION UP IN BED FOR COMFORT, WILL CONT TO MONITOR FOR CHANGES.
[2016-06-28] VITALS (24 sets, daily range): BP systolic 97–149; BP diastolic 59–88
--- NOTE | 2016-06-28 01:00 | NUR ---
PT RESTING IN BED EYES CLOSED, RESP EVEN AND UNLABORED, VSS, WILL CONT TO MONITOR FOR CHANGES.
--- NOTE | 2016-06-28 02:30 | NUR ---
PT AWAKE, ASSISTED UP TO BSC PER REQUEST, CALL LIGHT IN REACH, PT INSTRUCTED TO CALL FOR ASSITANCE BEFORE GETTING UP, PT VERBALIZED UNDERSTANDING.
--- NOTE | 2016-06-28 03:00 | NUR ---
PT HAD SM PARTIALLY FORMED AND LIQUID BROWN STOOL, COMPLETE BATH AND LINEN CHANGE PROVIDED, DRSG CHANGED TO PREVIOUS CT INSERTION SITE, SITE CLEANED WITH BETADINE, COVERED WITH 4X4'S AND LARGE TEGADERM, PT CORY WELL, TEDS AND SCD'S REMOVED TO WASH FEET AND LEGS, TEDS AND SCDS LEFT OFF FOR BREAK, SR UP X 2, CALL LIGHT IN REACH.
--- NOTE | 2016-06-28 03:10 | NUR ---
RADIOLOGY AT BS FOR AM CXR.
--- NOTE | 2016-06-28 05:00 | NUR ---
PT RESTING IN BED WATCHING TV, DENIES PAIN OR NEEDS.
--- NOTE | 2016-06-28 06:00 | NUR ---
FAMILY AT BS, QUESTIONS ANSWERED, AM MEDS GIVEN, PT DENIES FURTHER NEEDS, SR UP X 2, CALL LIGHT IN REACH.
[2016-06-28 06:29] LABS: BASOPHILS 0.3 % (0.0-2.0); EOSINOPHILS 3.9 % (0-7); HEMATOCRIT 28.3 % (42.0-54.0); HEMOGLOBIN 9.3 g/dL (13.5-17.5); IMMATURE GRANULOCYTES 0.3 % (0-5); LYMPHOCYTES 25.8 % (15-50); MCH 33.2 pg (26.0-34.0); MCHC 32.9 g/dL (31.0-37.0); MCV 101.1 fL (80.0-100.0); MONOCYTES 12.3 % (2-11); NEUTROPHILS 57.4 % (40-80); PLATELET COUNT 267 10x3/uL (130-400); RDW 15.5 % (11.5-14.5); WBC 6.7 10x3/uL (4.8-10.8)
[2016-06-28 06:33] LABS: CALC OSMOLALITY 277 mosm/kg (275-300); CALCIUM 8.2 mg/dL (8.5-10.1); CARBON DIOXIDE 28.3 mmol/L (21.0-32.0); CHLORIDE - SERUM 103 mmol/L (98-107); CREATININE - SERUM 0.9 mg/dL (0.6-1.3); GLUCOSE 143 mg/dL (74-106); MAGNESIUM - SERUM 2.1 mg/dL (1.8-2.4); POTASSIUM - SERUM 3.9 mmol/L (3.5-5.1); SODIUM 138 mmol/L (136-145); UREA NITROGEN 13 mg/dL (7-18); eGFR NON AFRICAN AMERICAN 88 mL/min (90-120)
--- NOTE | 2016-06-28 09:56 | NUR ---
PT GOT SELF BACK INTO BED WITHOUT ASSIST. CALL LIGHT WITHIN REACH.
--- NOTE | 2016-06-28 12:54 | NUR ---
PT AMBULATED WITHOUT ASSISTANCE APPROX 600 FT. STEADY GAIT NOTED. ASSISTED TO CHAIR AND CALL LIGHT WITHIN REACH.
--- NOTE | 2016-06-28 13:39 | NUR ---
LARGE STOOL NOTED LOOSE WITH SOME CONSISTENCY. ABOUT 400 CC.
--- NOTE | 2016-06-28 17:41 | NUR ---
PT UP TO CHAIR. SET UP WITH KINZA DAVIS.
--- NOTE | 2016-06-28 18:26 | NUR ---
PT GOT SELF BACK TO BED. STEADY GAIT NOTED. TOLERATED SUPPER. CALL LIGHT WITHIN REACH.
--- NOTE | 2016-06-28 19:30 | NUR ---
REPORT RECIEVED, SHIFT ASSESSMENT COMPLETE, PT IS ALERT AND ORIENTED, ON RA WITH 97% O2 SAT. RIGHT UPPER LOBE ABSENT, LEFT UPPER LOBE CLEAR, B/L LOWER LOBES DIMINISHED, PATENT RIGHT SC CVL S/L, INCISION TO RIGHT LATERAL CHEST IS OPEN TO AIR, NO REDNESS OR SWELLING NOTED, DRSG TO OLD CT SITES ARE CDI, ABDOMEN IS DISTENDED WITH ACTIVE BS, URINAL AT BEDSIDE, EDEMA NOTED IN ALL EXTREMETIES, ALL PPP, VSS, CALL LIGHT IN REACH
--- NOTE | 2016-06-28 21:30 | NUR ---
FAMILY AT BEDSIDE, UPDATE GIVEN
--- NOTE | 2016-06-28 23:00 | NUR ---
REASSESSMENT COMPLETE, NO CHANGES NOTED, PT RESTING AT THIS TIME, DENIES ANY WANTS OR NEEDS, VSS, CALL LIGHT IN REACH
[2016-06-29] VITALS (8 sets, daily range): BP systolic 109–128; BP diastolic 58–78
--- NOTE | 2016-06-29 01:05 | NUR ---
PT RESTING AT THIS TIME, WILL CON'T TO MONITOR
--- NOTE | 2016-06-29 03:05 | NUR ---
REASSESSMENT COMPLETE, NO CHANGES NOTED, PT AWAKE AT THIS TIME, DENIES ANY NEEDS, VSS, CALL LIGHT IN REACH
--- NOTE | 2016-06-29 05:00 | NUR ---
PT RESTING AT THIS TIME, WILL CON'T TO MONITOR
[2016-06-29 06:19] LABS: BASOPHILS 0.4 % (0.0-2.0); HEMATOCRIT 29.7 % (42.0-54.0); HEMOGLOBIN 9.9 g/dL (13.5-17.5); IMMATURE GRANULOCYTES 0.4 % (0-5); LYMPHOCYTES 24.2 % (15-50); MCH 33.3 pg (26.0-34.0); MCHC 33.3 g/dL (31.0-37.0); MEAN PLATELET VOLUME 8.8 fL (7.4-10.4); MONOCYTES 16.5 % (2-11); NEUTROPHILS 54.5 % (40-80); PLATELET COUNT 271 10x3/uL (130-400); RBC 2.97 10x6/uL (4.20-6.10); RDW 15.4 % (11.5-14.5); WBC 6.8 10x3/uL (4.8-10.8)
[2016-06-29 06:44] LABS: CALC OSMOLALITY 278 mosm/kg (275-300); CALCIUM 8.6 mg/dL (8.5-10.1); CARBON DIOXIDE 27.5 mmol/L (21.0-32.0); CHLORIDE - SERUM 103 mmol/L (98-107); CREATININE - SERUM 0.9 mg/dL (0.6-1.3); GLUCOSE 154 mg/dL (74-106); POTASSIUM - SERUM 3.3 mmol/L (3.5-5.1); SODIUM 138 mmol/L (136-145); UREA NITROGEN 12 mg/dL (7-18); eGFR NON AFRICAN AMERICAN 88 mL/min (90-120)
[2016-06-29] MEDS ORDERED: HEMOCYTE PLUS C1 CAP PO (09:09)
[2016-06-29] MEDS ORDERED: ULTRAM50 MG PO (09:11)
--- NOTE | 2016-06-29 09:18 | NUR ---
Nutrition follow-up: Diet just advanced to very soft gastric bland Abdomen still distended; pt having BM's Edema to all extremities Labs reviewed Wt: 195# Will provide food choices with selective menus and honor food preferences within diet restrictions. RDN following.
--- NOTE | 2016-06-29 11:26 | NUR ---
0800 AM ASSESMENT IS COMPLETE SEE FLOW SHEET FOR FINDINGS.. PT IS SLEEPING EASILY ROUSED AND BREAKFAST TRAY TAKEN TO PT.. ADA REGULAR DIET.. PT IS WITHOUT C/O AT THIS TIME AND STATES THAT DR HARVEY IS PLANNING TO SEND HIM HOME TODAY.. 0900 SISTER AT THE BEDSIDE .. DR HARVEY IN TO SEE PT AND ORDERS TO DC PT HOME RECIEVED..STERI STRIPS APPLIED TO INCISION SITES BY TIFFANIE 1000 AL ORDERS ENTERED BY TIFFANIE HARVEY NURSE FOR DC AND APPOINTMENTS MADE FOR FOLLOW UP CARE BY HER.. APPOINTMENT CARDS AND SCRIPTS GIVEN TO PT AND SISTER BY TIFFANIE.. 1045 CVL DCd AND DISCHRGE INSTRUCTIONS REVIEWED WITH PT [address] SELF IN STREET CLOTHES AND THEN TRANSPORTED TO HOSPITAL ENTRANCE VIA WHEEL CHAIR TO WAITING PVT CAR...
--- NOTE | 2016-07-15 12:06 | DS ---
PATIENT:CHARITY SETH :42 MEDICAL RECORD: [id number] DISCHARGE SUMMARY ADMISSION DATE: 06/23/16 DISCHARGE DATE: 06/29/16 DISCHARGE DIAGNOSES: 1. 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 2. Nicotine dependence. 3. Atelectasis. 4. Paralytic ileus, post-procedural. 5. Acute posthemorrhagic anemia. 6. Obstructive sleep apnea. 7. Essential hypertension. 8. Coronary artery disease without angina pectoris. 9. Chronic obstructive pulmonary disease. 10. Gastroesophageal reflux. 11. Irritable bowel syndrome. 12. Osteoarthritis. 13. Allergic rhinitis. 14. Benign prostatic hypertrophy. 15. Constipation. 16. Anemia of chronic disease. DISCHARGE MEDICATIONS: Please see medical reconciliation form. DISPOSITION: The patient was just discharged home. He has an appointment to see Dr. Harvey in 2-3 weeks, appointment to see Dr. Mehta to be arranged. HOSPITAL COURSE: Mr. Seth is admitted to the hospital and underwent right upper lobe resection and radical mediastinal lymphadenectomy. He had hilar nodes that were positive and tumor extending into the pleural surface. Postoperatively, he did well hemodynamically; however, he developed a paralytic ileus and required NG drainage, which responded to therapy. His bowel function returned. He began taking a diet and ambulating. At time of discharge, his incisions are healing well, his chest is clear, and he is eager to go home. He has been given discharge instructions, wound precautions and will be seen as above. TRANSINT:[id number] Voice Confirmation ID: [id number] DOCUMENT ID: [id number] KAREEM HARVEY MD at 1206 CC: [id number] DICTATION DATE: 07/08/16 1356 PRINTER'S DEVIL: 07/08/[id number] DIS IN 06/29/16 [id number] [place] [address]
== END 2016-06-29 11:00 | disposition home or self-care (01) | DRG 164 ==
LOC: D.ICU 05:04 → D.SDCHOLD 05:04 → D.ICU 08:00
PROVIDERS: Internal Medicine Gastroenterology; Internal Medicine Pulmonary Disease; ADMIT Internal Medicine Cardiovascular Disease
PROC: 0BTC0ZZ Resection of Right Upper Lung Lobe, Open Approach (ICD-10-PCS; principal; 2016-06-23 07:30)
PROC: 07T70ZZ Resection of Thorax Lymphatic, Open Approach (ICD-10-PCS; 2016-06-23 07:30)
DX: C34.11 Malignant neoplasm of upper lobe, right bronchus or lung (principal); F17.203 Nicotine dependence unspecified, with withdrawal; J98.11 Atelectasis; K91.3 Postprocedural intestinal obstruction; D62 Acute posthemorrhagic anemia; G47.33 Obstructive sleep apnea (adult) (pediatric); I10 Essential (primary) hypertension; I25.10 Atherosclerotic heart disease of native coronary artery without angina pectoris; J44.9 Chronic obstructive pulmonary disease, unspecified; K21.9 Gastro-esophageal reflux disease without esophagitis; K58.9 Irritable bowel syndrome, unspecified; M19.90 Unspecified osteoarthritis, unspecified site; J30.9 Allergic rhinitis, unspecified; N40.0 Benign prostatic hyperplasia without lower urinary tract symptoms; K59.00 Constipation, unspecified; Y83.8 Other surgical procedures as the cause of abnormal reaction of the patient, or of later complication, without mention of misadventure at the time of the procedure; D63.8 Anemia in other chronic diseases classified elsewhere

== ENCOUNTER → 2016-07-13 08:53 | Outpatient (CLI) | payer MEDICARE, BC ==
[~2016-07-13 08:53] MED LIST changes: +HEMOCYTE PLUS C1 CAP PO; +ULTRAM50 MG PO
== END | disposition home or self-care (01) ==
LOC: D.RAD 08:53
DX: Z90.2 Acquired absence of lung [part of] (principal)

== ENCOUNTER → 2016-08-31 12:09 | Outpatient (CLI) | payer MEDICARE, BC | END | disposition home or self-care (01) | LOC: D.RAD 08-29 11:30 | DX: Z90.2 Acquired absence of lung [part of] (principal) ==

== ENCOUNTER → 2016-09-22 12:47 | Outpatient (CLI) | payer MEDICARE, BC | END | disposition home or self-care (01) | LOC: D.RAD 12:47 | DX: D72.819 Decreased white blood cell count, unspecified (principal) ==

== ENCOUNTER → 2016-10-03 13:01 | Outpatient (CLI) | payer MEDICARE, BC | END | disposition home or self-care (01) | LOC: D.RAD 10:15 | DX: D72.819 Decreased white blood cell count, unspecified (principal) ==

== ENCOUNTER → 2016-10-16 08:51 | Outpatient (CLI) | payer MEDICARE, BC | END | disposition home or self-care (01) | LOC: D.RAD 10-13 11:45 | DX: J18.9 Pneumonia, unspecified organism (principal) ==

== ENCOUNTER 2016-10-26 09:13 | Outpatient (CLI) | payer MEDICARE, BC ==
[~2016-10-26] VITALS: Ht 172.7 cm; Wt 93.2 kg
[2016-10-26 09:52] VITALS: BP 131/83; Ht 172.7 cm; Wt 93.2 kg
[2016-10-26 10:13] LABS: BASOPHILS 0.4 % (0-2); EOSINOPHILS 5.2 % (0-7); HEMATOCRIT 38.6 % (42.0-54.0); HEMOGLOBIN 12.5 g/dL (13.5-17.5); IMMATURE GRANULOCYTES 0.1 % (0-5); LYMPHOCYTES 20.8 % (15-50); MCH 30.9 pg (26.0-34.0); MCHC 32.4 g/dL (31.0-37.0); MCV 95.5 fL (80.0-100.0); MEAN PLATELET VOLUME 9.2 fL (7.4-10.4); MONOCYTES 8.5 % (2-11); PLATELET COUNT 288 10x3/uL (130-400); RBC 4.04 10x6/uL (4.20-6.10); RDW 18.6 % (11.5-14.5)
[2016-10-26 10:43] LABS: APTT 33.1 SECONDS (22.8-39.4); PROTIME 13.1 SECONDS (11.6-15.0)
--- NOTE | 2016-10-26 11:48 | NUR ---
1136 BACK FROM BRONCHOSCOPY SOME SLEEPY BUT EASILY ROUSES. RESP EVEN AND NONLABORED. C/L IN REACH FAMILY PRESENT. REPORT TO Jelly
--- NOTE | 2016-10-26 13:14 | NUR ---
POST PROCEDURAL CHEST X-RAY COMPLETED. FAMILY AT BEDSIDE. FULL LIQUIDS ARE BEING TOLERATED. PT HAS BEEN UP OOB TO BR, VOIDED WITHOUT DIFFICULTY. WILL CONTINUE TO MONITOR. WILL DISCHARGE WHEN D/C CRITERIA MET.
--- NOTE | 2016-10-26 13:47 | NUR ---
FULL LIQUIDS TOLERATED 1320- IV D/C'D, PT TOLERATED. CATHETER INTACT. 1335- DISCHARGE INSTRUCTION COMPLETED, PT VERBALIZED UNDERSTANDING. PAPERWORK SIGNED. 1340- PT DISCHARGED VIA WHEELCHAIR.
[2016-10-27 14:24] LABS: FUNGUS STAIN Final report (())
[2016-10-27 19:11] LABS: ACID FAST SMEAR Negative (()); AFB SPECIMEN PROCESSING Concentration (())
== END 2016-10-26 13:40 | disposition home or self-care (01) ==
LOC: D.OPS 09:13
PROVIDERS: Internal Medicine Pulmonary Disease
DX: C34.11 Malignant neoplasm of upper lobe, right bronchus or lung (principal); J98.09 Other diseases of bronchus, not elsewhere classified; T17.890A Other foreign object in other parts of respiratory tract causing asphyxiation, initial encounter; J44.9 Chronic obstructive pulmonary disease, unspecified; I10 Essential (primary) hypertension; I25.10 Atherosclerotic heart disease of native coronary artery without angina pectoris

== ENCOUNTER 2016-11-02 11:50 | Day surgery (SDC) | payer MEDICARE, BC ==
[~2016-11-02] VITALS: Ht 172.7 cm; Wt 81.8 kg
--- NOTE | ~2016-11-02 | OP ---
PATIENT NAME: CHARITY PALMER MEDICAL RECORD: [id number] :42 LOCATION:[facility] ADMISSION DATE: SURGEON: JUSTUS ZIMMEMRAN DO DATE OF OPERATION: 11/02/2016 PROCEDURE: EGD with biopsies. INDICATIONS: Follow up of an acute duodenal ulcer and history of Reyes's esophagus. SCOPE: Olympus video gastroscope. MEDICATIONS: Propofol 120 mg IV per anesthesia. ESTIMATED BLOOD LOSS: Minimal. COMPLICATIONS: None. FINDINGS: Informed consent was given. The patient was made comfortable with the above medication. After reaching an adequate level of sedation by slow IV push, the patient was placed on his left side. The endoscope was then advanced under direct visualization through the mouth to the second portion of the duodenum. There was evidence of Candidal esophagitis in the upper, middle, and distal thirds of the esophagus down to the GE junction. At the GE junction, there were both evidence of a short segment Reyes's esophagus with a tongue of less than or equal to 1 cm and evidence of LA class A reflux induced esophagitis. Biopsies were taken in the segment of Reyes's to look for dysplasia. The endoscope was advanced beyond the GE junction and retroflexed to view the cardia where a small sliding hiatal hernia was present. The fundus and body of the stomach appeared normal. In the antrum and prepyloric region, there were signs of gastritis consisting of granularity, nodularity, and erythema. Random biopsies were taken to submit for histology and to rule out H. pylori. The endoscope was advanced beyond the pylorus into the duodenum where both the bulb and second portion displayed some evidence of duodenitis. Biopsies were taken randomly in the small bowel to submit for histology. The endoscope is withdrawn from the patient. The patient tolerated the procedure well and there were no complications. IMPRESSION: 1. Candidal esophagitis. 2. Reyes's esophagus. 3. LA class A reflux induced esophagitis. 4. Small sliding hiatal hernia. 5. Gastritis of the antrum and prepyloric region with biopsies pending. 6. Duodenitis of the bulb and second portion of the duodenum with biopsies pending. PLAN AND RECOMMENDATIONS: 1. Discharge home when recovery parameters are met. 2. Continue current diet. 3. Continue current medications including pantoprazole and Zantac. 4. Add Diflucan or fluconazole 100 mg daily times 21 days with 2 doses on day 1. 5. Follow up in GI clinic as needed. OPERATIVE REPORT [id number] CHARITY PALMER TRANSINT:[id number] Voice Confirmation ID: [id number] DOCUMENT ID: [id number] JUSTUS ZIMMERMAN DO CC: [id number] DICTATION DATE: 11/02/16 1333 TOOL DESIGN ENGINEER: 11/02/162201 [facility] 11/02/16 [place] [id number]
[2016-11-02 12:26] LABS: HEMATOCRIT 38.8 % (42.0-54.0); HEMOGLOBIN 12.6 g/dL (13.5-17.5); MCHC 32.5 g/dL (31.0-37.0); MCV 95.6 fL (80.0-100.0); MEAN PLATELET VOLUME 8.9 fL (7.4-10.4); RBC 4.06 10x6/uL (4.20-6.10); RDW 18.3 % (11.5-14.5); WBC 7.1 10x3/uL (4.8-10.8)
[2016-11-02] MEDS ORDERED: SINGULAIR10 MG PO (12:39)
[2016-11-02 12:48] VITALS: BP 111/63; Ht 172.7 cm; Wt 81.8 kg
[2016-11-02 12:52] LABS: CALC OSMOLALITY 274 mosm/kg (275-300); CALCIUM 8.6 mg/dL (8.5-10.1); CARBON DIOXIDE 25.4 mmol/L (21.0-32.0); CHLORIDE - SERUM 104 mmol/L (98-107); CREATININE - SERUM 0.8 mg/dL (0.6-1.3); GLUCOSE 116 mg/dL (74-106); POTASSIUM - SERUM 4.6 mmol/L (3.5-5.1); SODIUM 136 mmol/L (136-145); UREA NITROGEN 18 mg/dL (7-18); eGFR NON AFRICAN AMERICAN > 90 mL/min (90-120)
--- NOTE | 2016-11-02 14:30 | NUR ---
1345- PT SITTING UP WITH HOB ELEVATED. FULL LIQUIDS OFFERED. VSS. 1400- FULL LIQUIDS TOLERATED. 1415- IV D/C'D, PT TOLERATED. CATHETER INTACT. 1425- DISCHARGE INSTRUCTIONS COMPLETED, PT VERBALIZED UNDERSTANDING. PAPERWORK SIGNED. 1430- PT DISCHARGED VIA WHEELCHAIR WITH
== END 2016-11-02 14:30 | disposition home or self-care (01) ==
LOC: D.OPS 11:50
PROVIDERS: Anesthesiology
DX: K22.70 Barrett's esophagus without dysplasia (principal); B37.81 Candidal esophagitis; K21.0 Gastro-esophageal reflux disease with esophagitis; K44.9 Diaphragmatic hernia without obstruction or gangrene; K29.70 Gastritis, unspecified, without bleeding; K29.80 Duodenitis without bleeding

== ENCOUNTER → 2016-12-08 10:28 | Outpatient (CLI) | payer MEDICARE, BC ==
[2016-11-02 12:48] VITALS: BMI 27.4
[~2016-12-08 10:28] MED LIST changes: +SINGULAIR10 MG PO
== END | disposition home or self-care (01) ==
LOC: D.CT 10:28
DX: D72.819 Decreased white blood cell count, unspecified (principal)

== ENCOUNTER 2016-12-14 08:59 | Inpatient (IN) | payer MEDICARE, BC ==
[~2016-12-14] VITALS: Ht 172.7 cm; Wt 81.4 kg
--- NOTE | 2016-12-14 09:10 | NUR ---
PT TO ROOM SITTING UP TO CHAIR ALERT AND ORIENTED. VS ARE WNL. WILL ADMIT.
[2016-12-14] MEDS ORDERED: LOPRESSOR25 MG PO (09:39)
[2016-12-14] MEDS ORDERED: ALENDRONATE SOD70 MG PO (09:42)
[2016-12-14] MEDS ORDERED: TESSALON PERLE100 MG PO (09:43)
[2016-12-14] MEDS ORDERED: ZYRTEC10 MG PO (09:44)
[2016-12-14] MEDS ORDERED: VITAMIN D2000 UNIT PO (09:44)
[2016-12-14] MEDS ORDERED: REFRESH TEARS15 ML EACH EYE (09:44)
[2016-12-14] MEDS ORDERED: PROSCAR5 MG PO (09:45)
[2016-12-14] MEDS ORDERED: VITAMIN B-12100 MCG PO (09:45)
[2016-12-14] MEDS ORDERED: FLOVENT DI50 MCG/DIS INH (09:46)
[2016-12-14] MEDS ORDERED: FLORANEX / LACT1 TAB PO (09:47)
[2016-12-14] MEDS ORDERED: MAGNESIUM OXID420 MG PO (09:47)
[2016-12-14] MEDS ORDERED: ZOLOFT25 MG PO (09:51)
[2016-12-14 09:56] VITALS: BP 116/74; BMI 27.5
--- NOTE | 2016-12-14 10:18 | NUR ---
STARTED PIV TO LEFT HAND 22G X2 STICKS. SIGNED AND DATED DSNG ADHERED TO THE SKIN. SWAB CAPS INTACT. PT DENIES ANY NEEDS AT THIS TIME. ADMISSION IS COMPLETE. WILL CONT TO MONITOR.
[2016-12-14 11:54] LABS: HEMATOCRIT 41.9 % (42.0-54.0); MCHC 33.4 g/dL (31.0-37.0); MCV 95.7 fL (80.0-100.0); MEAN PLATELET VOLUME 9.3 fL (7.4-10.4); RBC 4.38 10x6/uL (4.20-6.10); RDW 15.5 % (11.5-14.5); WBC 6.3 10x3/uL (4.8-10.8)
[2016-12-14 12:03] LABS: APTT 30.9 SECONDS (22.8-39.4); INR 0.93 (0.85-1.17); PROTIME 12.3 SECONDS (11.6-15.0)
[2016-12-14 12:10] LABS: ALBUMIN 3.1 g/dL (3.4-5.0); ALKALINE PHOSPHATASE 88 U/L (46-116); ALT (SGPT) 14 U/L (10-68); BILIRUBIN - TOTAL 0.28 mg/dL (0.2-1.3); CALC OSMOLALITY 279 mosm/kg (275-300); CALCIUM 9.4 mg/dL (8.5-10.1); CARBON DIOXIDE 27.6 mmol/L (21.0-32.0); CHLORIDE - SERUM 104 mmol/L (98-107); CREATININE - SERUM 0.9 mg/dL (0.6-1.3); GLUCOSE 93 mg/dL (74-106); POTASSIUM - SERUM 4.2 mmol/L (3.5-5.1); PROTEIN - SERUM 7.7 g/dL (6.4-8.2); SODIUM 140 mmol/L (136-145); UREA NITROGEN 14 mg/dL (7-18); eGFR NON AFRICAN AMERICAN 87 mL/min (90-120)
[2016-12-14 12:52] VITALS: BP 114/71
--- NOTE | 2016-12-14 14:06 | NUR ---
EKG ARE DONE AND PLACED ON CHART.
--- NOTE | 2016-12-14 14:25 | NUR ---
PT TO SURGERY
[2016-12-14 16:05] VITALS: BP 104/67
--- NOTE | 2016-12-14 16:13 | NUR ---
PT BACK FROM PROCEDURE. ALERT AND ORIENTED. STILL LETHARGIC BUT ARROUSES TO STIMULI. VS ARE WNL. IV ABX STARTED AND INFUSING TO LEFT CVL DOUBLE LUMEN DRESSING IS CDI SIGNED AND DATED SWAB CAPS IN USE. PT PIV THAT WAS PREVIOUSLY IN LEFT HAND IS NOW GONE. WILL CONT TO MONITOR
--- NOTE | 2016-12-14 18:38 | NUR ---
PT SITTING UP IN BED DENIES NEEDS FAMILY MEMBER AT BEDSDIE
[2016-12-14 19:00] VITALS: BP 131/77
--- NOTE | 2016-12-14 19:20 | NUR ---
RECEIVED REPORT, WILL ASSUME CARE OF PT, PT DENIES ANY NEEDS AT THIS TIME, BED IS LOW, SRX2, CALL LIGHT IN REACH, FAMILY AT BEDSIDE, WILL CONTINUE PLAN OF CARE
--- NOTE | 2016-12-14 21:34 | NUR ---
[id number], NO COVERAGE NEEDED
[2016-12-15] VITALS: BP 148/82
[2016-12-15 04:00] VITALS: BP 130/75
--- NOTE | 2016-12-15 07:14 | NUR ---
PT SITTING UP IN BED SLEEPING ARROUSES EASILY. ASKS FOR COFFEE, GIVEN. DENIES ANY OTHER NEEDS WILL CONT TO MONITOR
[2016-12-15 08:12] VITALS: BP 128/67
[2016-12-15 11:10] VITALS: Ht 172.7 cm; Wt 81.4 kg
[2016-12-15 12:13] VITALS: BP 109/61
[2016-12-15 16:07] VITALS: BP 127/61
--- NOTE | 2016-12-15 16:32 | NUR ---
PT IS VERY UPSET AND STATES THAT HE WANTS A WEEKEND PASS BECAUSE DR HARVEY AND BHAVNA ARENT GOING TO DO ANYTHING FOR HIM UNTIL SUNDAY. PT IS VERY UPSET GETTING DRESSED SAYING HE IS LEAVING NOW AND HE WILL BE BACK ON SUNDAY. TALKED WITH TIFFANIE HARVEY NURSE, SHE SAID TO TRY AND EXPLAIN TO PT THAT THEY WOULD BE BY SOON AND THAT HE NEEDS TO STAY IN HOSPITAL FOR IV ABX FOR PNEUMONIA. I TRIED TO EXPLAIN AT LENGTH WITH PT AND FAMILY. PT STILL UPSET AND WANTS TO LEAVE SAYS HE HAS "TOMATOES AND CUCUMBERS TO PICK AT HOME". SAID HE WILL GIVE DR HARVEY UNTIL 1829 TO COME SEE HIM AND HE IS LEAVING AMA.
--- NOTE | 2016-12-15 17:42 | NUR ---
DR HARVEY AND BHAVNA SPOKE WITH PT AND PT HAS AGREED TO STAY THROUGH SUNDAY
--- NOTE | 2016-12-15 18:01 | NUR ---
PT SITTING UP IN BED WITH FAMILY AT BEDSIDE DENIES NEEDS
[2016-12-15 19:00] VITALS: BP 111/64
--- NOTE | 2016-12-15 19:20 | NUR ---
RECEIVED REPORT, WILL ASSUME CARE OF PT, PT ALERT & ORIENTATED, DENIES ANY NEEDS AT THIS TIME, BED IS LOW, SRX2, CALL LIGHT IN REACH, WILL CONTINUE PLAN OF CARE
--- NOTE | 2016-12-15 21:10 | NUR ---
PT ASKING FOR WHISKEY AND A REAL COKE
[2016-12-16] VITALS: BP 132/73
--- NOTE | 2016-12-16 00:15 | NUR ---
PT AWAKER AND SITTING UP IN ROOM, REQUESTS ORDERED PRN ETOH AT THIS TIME. NO OTHER C/O NOTED. WILL MONITOR.
--- NOTE | 2016-12-16 00:23 | NUR ---
PT ASKING FOR WHISKEY PER ORDER
[2016-12-16 04:06] VITALS: BP 97/45
--- NOTE | 2016-12-16 07:00 | NUR ---
RECEIVED REPORT. ASSUMED CARE OF PATIENT. CALL LIGHT WITHIN REACH. PATIENT LYING IN BED WITH EYES OPEN. RESP EVEN AND UNLABORED. DENIES NEEDS AT THIS TIME. IV FLUIDS INFUSING AT KVO VIA LEFT CHEST SUBCLAVIAN. NO DISTRESS.
[2016-12-16 07:42] VITALS: BP 118/67
--- NOTE | 2016-12-16 11:26 | NUR ---
FSBS 138. NO INSULIN COVERAGE PER SLIDING SCALE.
[2016-12-16 12:20] VITALS: BP 126/77
--- NOTE | 2016-12-16 13:26 | OP ---
PATIENT NAME: CHARITY PALMER MEDICAL RECORD: [id number] :41 LOCATION:D. D.2105 ADMISSION DATE:12/14/16 SURGEON: KAREEM HARVEY MD OPERATION DATE: 12/14/16 SURGEON: Kareem Harvey M.D. ANESTHESIA: General endotracheal by Dr. Weeks. PROCEDURE: Flexible fiberoptic bronchoscopy with bronchioalveolar lavage. PREOPERATIVE DIAGNOSIS: Recurrent pneumonia, right lung status post right upper lobe resection. POSTOPERATIVE DIAGNOSIS: Obstructive pneumonia secondary to narrowing of the right mainstem bronchus. INDICATION FOR OPERATION: Recurrent pneumonia. FINDINGS OF OPERATION: The takeoff of the right mainstem bronchus was narrow. There was purulent material in the mainstem bronchus as well as middle lobe bronchi and lower lobe bronchi. The patient underwent bronchioalveolar lavage to clean this area and the distal bronchus was opened. The proximal bronchus is angulated due to the reinflation and cannot rule out extrinsic compression. Cultures were taken for aerobe and anaerobe. PROCEDURE IN DETAIL: After informed consent, adequate preoperative medication, and evaluation, the patient was brought to the operating room and placed stable in the supine position. Dr. Yu placed a double lumen subclavian line. He then underwent general endotracheal anesthesia and intubation. The flexible fiberoptic bronchoscopy was performed demonstrating mucopurulent material in the takeoff of the right mainstem bronchus with narrowing. The left mainstem upper and lower lobe bronchi on the left were normal. The mucus was aspirated from the right tracheobronchial tree and bronchioalveolar lavage was performed in the lower lobe. This cleaned the large bronchi. Careful inspection of the mainstem bronchus demonstrates a slit like opening that one cannot tell whether it is extrinsic compression due to recurrent tumor or bronchomalacia. Once through this initial area, one is able to see a normal bronchus intermedius . With positive intrathoracic pressure there is collapse of this airway. I think that his pneumonia is secondary to an obstruction at the takeoff of the right mainstem bronchus. The bronchoscope was removed. The patient tolerated the procedure well and was transferred to Post Anesthesia in satisfactory condition. KAREEM HARVEY MD at 1326 CC: [id number] DICTATION DATE: 12/14/16 1400 WATCH AND CLOCK MAKER AND REPAIRER: 12/15/16 1512 ADM IN [place] [id number] [place] [address]
[2016-12-16 15:52] VITALS: BP 128/71
--- NOTE | 2016-12-16 16:59 | NUR ---
FSBS 195. 2 UNITS HUMULIN INSULIN ADMINISTERED PER SLIDING SCALE. NO DISTRESS. CONSUMING PM MEAL AT THIS TIME.
--- NOTE | 2016-12-16 18:08 | NUR ---
THREE, 30 ML SPIRITS ADMINISTERED TO PATIENT AT THIS TIME.
--- NOTE | 2016-12-16 19:53 | NUR ---
PT RESTING IN BED ON PHONE. NO S/S OF DISTRESS. NAME PLACED ON WHITE BOARD. WILL CONTINUE TO MONITOR
[2016-12-16 20:00] VITALS: BP 111/69
--- NOTE | 2016-12-17 00:58 | NUR ---
PT ASLEEP. RESPIRATIONS EVEN AND UNLABORED. NO S/S OF DISTRESS. WILL CONTINUE TO MONITOR
[2016-12-17 04:00] VITALS: BP 131/80
--- NOTE | 2016-12-17 05:56 | NUR ---
PT ALSEEP. RESPIRATIONS EVEN AND UNLABORED. NO S/S OF DISTRESS. WILL CONTINUE TO MONITOR
--- NOTE | 2016-12-17 07:00 | NUR ---
RECEIVED REPORT.ASSUMED CARE OF PATIENT. PATIENT RESTING IN BED WITH EYES OPEN. STATES HE RESTED WELL LAST NIGHT. CALL LIGHT WITHIN REACH. DENIES NEEDS AT THIS TIME. NS INFUSING AT KVO TO LEFT SUBCLAVIAN. PATIENT UP ADLIB, REFUSES SCDS. NO DISTRESS.
[2016-12-17 08:00] VITALS: BP 135/72
--- NOTE | 2016-12-17 11:23 | NUR ---
FSBS 119. NO INSULIN COVERAGE PER SLIDING SCALE
--- NOTE | 2016-12-17 11:45 | NUR ---
PATIENT OOB, AMBULATING WITHIN ROOM. NO DISTRESS.
[2016-12-17 12:00] VITALS: BP 126/73
[2016-12-17 16:00] VITALS: BP 119/69
--- NOTE | 2016-12-17 19:50 | NUR ---
PT RESTING IN BED. JUST GOT BACK FROM WALKING AROUND. PT DENIES ANY NEEDS AT THIS TIME. WILL CONTINUE TO MONITOR
--- NOTE | 2016-12-17 21:24 | NUR ---
PTS BP 72/38 DOPAMINE STARTED AT 2137. WILL CHECK BP AGAIN AT 2141. PT TALKING AND MOVING SPONTANEOUS. PT IS CONFUSED ORIENTED TO NAME ONLY. WILL CONTINUE TO MONITOR
[2016-12-17 22:41] VITALS: BP 140/80
--- NOTE | 2016-12-17 23:30 | NUR ---
PT RESTING IN BED WATCHING TV. RESPIRATIONS EVEN AND UNLABORED. NO S/S OF DISTRESS. PT DENIES ANY NEEDS. WILL CONTINUE TO MONITOR
[2016-12-18 02:51] VITALS: BP 140/85
--- NOTE | 2016-12-18 04:36 | NUR ---
PT ASLEEP. NO S/S OF DISTRESS. RESPIRATIONS EVEN AND UNLABORED. WILL CONTINUE TO MONITOR
[2016-12-18 05:27] VITALS: BP 131/72
--- NOTE | 2016-12-18 06:53 | NUR ---
PT IN BED GETTING BREATHING TREATMENT. DENIES ANY NEEDS AT THIS TIME. RESPIRATIONS EVEN AND UNLABORED. NO S/S OF DISTRESS. WILL CONTINUE TO MONITOR
[2016-12-18 08:00] VITALS: BP 125/74
[2016-12-18 09:38] LABS: BASOPHILS 0.4 % (0-2); EOSINOPHILS 4.4 % (0-7); HEMATOCRIT 41.3 % (42.0-54.0); HEMOGLOBIN 13.4 g/dL (13.5-17.5); IMMATURE GRANULOCYTES 0.1 % (0-5); LYMPHOCYTES 22.3 % (15-50); MCH 31.5 pg (26.0-34.0); MCHC 32.4 g/dL (31.0-37.0); MCV 96.9 fL (80.0-100.0); MEAN PLATELET VOLUME 9.2 fL (7.4-10.4); MONOCYTES 11.7 % (2-11); NEUTROPHILS 61.1 % (40-80); PLATELET COUNT 209 10x3/uL (130-400); RBC 4.26 10x6/uL (4.20-6.10); RDW 15.4 % (11.5-14.5); WBC 7.1 10x3/uL (4.8-10.8)
[2016-12-18 09:55] LABS: CARBON DIOXIDE 27.5 mmol/L (21.0-32.0); CHLORIDE - SERUM 103 mmol/L (98-107); POTASSIUM - SERUM 4.1 mmol/L (3.5-5.1); SODIUM 139 mmol/L (136-145); UREA NITROGEN 16 mg/dL (7-18); eGFR NON AFRICAN AMERICAN 77 mL/min (90-120)
[2016-12-18 09:56] LABS: CALC OSMOLALITY 281 mosm/kg (275-300); CALCIUM 7.8 mg/dL (8.5-10.1); GLUCOSE 152 mg/dL (74-106)
--- NOTE | 2016-12-18 10:47 | NUR ---
UP IN BED WATCHING TV - DENIES ANY NEEDS
[2016-12-18 12:00] VITALS: BP 110/73
--- NOTE | 2016-12-18 12:30 | NUR ---
OUT TO SURGERY
--- NOTE | 2016-12-18 13:08 | NUR ---
LEAVING FOR SURGERY BY BED. WILL CONT. PLAN OF CARE.
[2016-12-18] MEDS ORDERED: LEVAQUIN750 MG PO (16:17)
[2016-12-18] MEDS ORDERED: IPRAT-ALBUT 0.5-3 ML UPD (16:18)
[2016-12-18] MEDS ORDERED: MUCOMYST 20200 MG/M2 INH (16:20)
--- NOTE | 2016-12-18 16:35 | NUR ---
Patient Name: CHARITY PALMER Admission Status: Urgent Accout number: [id number] Admission Date: 12-14-2016 : 1940 Admission Diagnosis:OTHER PNEUMONIA, UNSPECIFIED ORGANISM Attending: BOUCHRA Current LOS: 4 Anticipated DC Date: 12-18-2016 Planned Disposition: Home Primary Insurance: MEDICARE A & B Discharge Planning Comments: * Is the patient Alert and Oriented? Yes 0 * How many steps to enter\exit or inside your home? 3 0 * PCP DR. GREEN, [facility] 0 * Pharmacy [facility] 0 * Preadmission Environment Home Alone 0 * ADLs Independent 0 * Equipment Cane Nebulizer Walker 0 * Other Equipment NO MEDICAL EQUIPMENT PROVIDER PREFERENCE 0 * List name and contact numbers for known caregivers / representatives who currently or will assist patient after discharge: JUAN MCKEON, DAUGHTER, BARBI HARVEY, SISTER, 0 * Community resources currently utilized None 0 * Please name any agencies selected above. NONE 0 * Additional services required to return to the preadmission environment? No 0 * Can the patient safely return to the preadmission environment? Yes 0 * Has this patient been hospitalized within the prior 30 days at any hospital? No 0 CM RECEIVED DISCHARGE ORDER, MET WITH PT IN ROOM TO DISCUSS DISCHARGE PLANNING AND NEEDS. PT REPORTS LIVING AT HOME INDEPENDENTLY AND ALONE. PT HAS A CANE AND WALKER THAT HE DOES NOT USE AND A NEBULIZER. PT HAS NO MEDICAL EQUIPMENT PROVIDER PREFERENCE. PT HAS NO OUTSIDE SERVICES ASSISTING IN THE HOME. CM DISCUSSED AVAILABILITY OF HOME HEALTH, REHAB SERVICES AND MEDICAL EQUIPMENT. PT DENIES DISCHARGE NEEDS, REPORTS HE PLANS TO DRIVE HIMSELF HOME TODAY FOR DISCHARGE HOME. IF PT IS UNABLE TO DRIVE, HE HAS LOTS OF SUPPORT (4 ADULTS) PRESENT IN ROOM THAT WILL TAKE PT HOME TODAY. IMPORTANT MESSAGE FROM MEDICARE PROVIDED AND EXPLAINED. CM NOTIFIED PT'S BEDSIDE NURSE OF PT'S PLAN TO DRIVE HOME TODAY. Machinery Cleaner: Joon Magallon
[2016-12-18] MEDS ORDERED: SYMBICORT 16010.2 GM INH (17:25)
[2016-12-18] MEDS ORDERED: MUCINEX600 MG PO (17:26)
--- NOTE | 2016-12-18 18:14 | NUR ---
D/C HOME PER PERSONAL VEHICLE
== END 2016-12-18 18:31 | disposition home or self-care (01) | DRG 190 ==
LOC: D.M2 08:59
PROVIDERS: Internal Medicine Medical Oncology; ADMIT Internal Medicine Cardiovascular Disease
PROC: 0B738DZ Dilation of Right Main Bronchus with Intraluminal Device, Via Natural or Artificial Opening Endoscopic (ICD-10-PCS; 2016-12-14)
PROC: 0B938ZX Drainage of Right Main Bronchus, Via Natural or Artificial Opening Endoscopic, Diagnostic (ICD-10-PCS; principal; 2016-12-14 15:00)
DX: J44.0 Chronic obstructive pulmonary disease with (acute) lower respiratory infection (principal); J18.8 Other pneumonia, unspecified organism; J90 Pleural effusion, not elsewhere classified; J98.09 Other diseases of bronchus, not elsewhere classified; Z85.118 Personal history of other malignant neoplasm of bronchus and lung; I10 Essential (primary) hypertension; I25.10 Atherosclerotic heart disease of native coronary artery without angina pectoris

== ENCOUNTER → 2017-01-10 12:15 | Outpatient (CLI) | payer MEDICARE, BC ==
[2016-12-15 11:10] VITALS: BMI 27.4
[~2017-01-10 12:15] MED LIST changes: +FLORANEX / LACT1 TAB PO; +FLOVENT DI50 MCG/DIS INH; +IPRAT-ALBUT 0.5-3 ML UPD; +LEVAQUIN750 MG PO; +MUCINEX600 MG PO; +MUCOMYST 20200 MG/M2 INH; +SYMBICORT 16010.2 GM INH; +VITAMIN B-12100 MCG PO; +VITAMIN D2000 UNIT PO; +ZOLOFT25 MG PO; +ZYRTEC10 MG PO
== END | disposition home or self-care (01) ==
LOC: D.RAD 10:00
DX: D72.819 Decreased white blood cell count, unspecified (principal)

== ENCOUNTER → 2017-02-21 09:50 | Outpatient (CLI) | payer MEDICARE, BC ==
[2016-12-15 11:10] VITALS: BMI 27.4
== END | disposition home or self-care (01) ==
LOC: D.CT 09:00
DX: C34.11 Malignant neoplasm of upper lobe, right bronchus or lung (principal)

== ENCOUNTER → 2017-06-11 09:55 | Outpatient (CLI) | payer MEDICARE, BC ==
[2016-12-15 11:10] VITALS: BMI 27.4
== END | disposition home or self-care (01) ==
LOC: D.CT 09:55
DX: C34.11 Malignant neoplasm of upper lobe, right bronchus or lung (principal)

== ENCOUNTER → 2018-06-24 09:08 | Outpatient (CLI) | payer MEDICARE, BC ==
[2016-12-15 11:10] VITALS: BMI 27.4
== END | disposition home or self-care (01) ==
LOC: D.CT 09:08
DX: C34.11 Malignant neoplasm of upper lobe, right bronchus or lung (principal)

== ENCOUNTER 2018-07-05 06:48 | Outpatient (CLI) | payer MEDICARE, BC ==
[~2018-07-05] VITALS: Ht 172.7 cm; Wt 78.2 kg
[2018-07-05 07:05] LABS: BASOPHILS 0.5 % (0-2); HEMOGLOBIN 14.5 g/dL (13.5-17.5); IMMATURE GRANULOCYTES 0.1 % (0-5); LYMPHOCYTES 25.9 % (15-50); MCHC 33.7 g/dL (31.0-37.0); MCV 88.8 fL (80.0-100.0); MEAN PLATELET VOLUME 8.8 fL (7.4-10.4); MONOCYTES 8.1 % (2-11); NEUTROPHILS 62.4 % (40-80); PLATELET COUNT 245 10x3/uL (130-400); RBC 4.84 10x6/uL (4.20-6.10); RDW 16.8 % (11.5-14.5); WBC 9.9 10x3/uL (4.8-10.8)
[2018-07-05 07:19] LABS: INR 1.02 (0.85-1.17); PROTIME 12.9 SECONDS (11.6-15.0)
[2018-07-05 07:20] LABS: APTT 32.6 SECONDS (22.8-39.4)
[2018-07-05 07:25] LABS: ANION GAP 13.1 mmol/L (8-16); CALCIUM 9.1 mg/dL (8.5-10.1); CARBON DIOXIDE 28.1 mmol/L (21.0-32.0); CREATININE - SERUM 1.1 mg/dL (0.6-1.3); POTASSIUM - SERUM 4.2 mmol/L (3.5-5.1)
[2018-07-05 07:54] VITALS: Ht 172.7 cm; Wt 78.2 kg
--- NOTE | 2018-07-05 09:00 | NUR ---
PATIENT RETURNED BY IR NURSE MELISSA BRICEÑO RN BY STRETCHER FROM IR, REPORT GIVEN THAT PROCEDURE WAS CANCELLED DUE TO CHANGE IN APPEARANCE OF THE LESION ON CT SCAN AND DR GLYNN DIDN'T FEEL LIKE BIOPSY WAS WARRANTED. DR GLYNN REPORTEDLY SPOKE WITH DR MORGAN BY PHONE. BREAKFAST TRAY FED TO PATIENT AND PERIPHERAL IV DC'D WITH TIP INTACT.
--- NOTE | 2018-07-05 09:20 | NUR ---
PATIENT FINISHED EATING FOOD, DISCHARGED VIA AMBULATORY
== END 2018-07-05 09:20 | disposition home or self-care (01) ==
LOC: D.SP 06:48 → D.CT 09:00 → D.SP 09:20 → D.CT 07-08 09:00
PROVIDERS: General Practice
DX: R91.8 Other nonspecific abnormal finding of lung field (principal); Z53.8 Procedure and treatment not carried out for other reasons; Z85.118 Personal history of other malignant neoplasm of bronchus and lung; J43.9 Emphysema, unspecified; Z01.812 Encounter for preprocedural laboratory examination

== ENCOUNTER → 2018-09-09 16:23 | Outpatient (CLI) | payer MEDICARE, BC | END | disposition home or self-care (01) | LOC: D.US 16:23 | DX: C34.11 Malignant neoplasm of upper lobe, right bronchus or lung (principal); G44.219 Episodic tension-type headache, not intractable; R60.0 Localized edema ==

== ENCOUNTER → 2018-09-24 12:45 | Outpatient (CLI) | payer MEDICARE, BC ==
[2018-07-05 07:54] VITALS: BMI 26.2
[2018-09-26 08:15] LABS: ACID FAST SMEAR Negative (()); AFB SPECIMEN PROCESSING Concentration (())
== END | disposition home or self-care (01) ==
LOC: D.RT 12:00
PROVIDERS: ATTEND Internal Medicine Cardiovascular Disease
DX: J18.9 Pneumonia, unspecified organism (principal)

== ENCOUNTER 2018-10-07 08:52 | Day surgery (SDC) | payer MEDICARE, BC ==
[~2018-10-07] VITALS: Ht 175.3 cm; Wt 78.2 kg
[2018-10-07 09:17] LABS: CALCIUM 9.4 mg/dL (8.5-10.1); CARBON DIOXIDE 28.4 mmol/L (21.0-32.0); CREATININE - SERUM 1.1 mg/dL (0.6-1.3); POTASSIUM - SERUM 4.4 mmol/L (3.5-5.1)
[2018-10-07 09:22] LABS: BASOPHILS 0.3 % (0-2); HEMATOCRIT 36.1 % (42.0-54.0); IMMATURE GRANULOCYTES 0.5 % (0-5); LYMPHOCYTES 9.7 % (15-50); MCH 28.8 pg (26.0-34.0); MCHC 33.2 g/dL (31.0-37.0); MCV 86.8 fL (80.0-100.0); MEAN PLATELET VOLUME 8.5 fL (7.4-10.4); MONOCYTES 5.2 % (2-11); NEUTROPHILS 82.3 % (40-80); PLATELET COUNT 465 10x3/uL (130-400); RBC 4.16 10x6/uL (4.20-6.10); RDW 16.7 % (11.5-14.5); WBC 15.1 10x3/uL (4.8-10.8)
[2018-10-07 09:26] LABS: APTT 33.8 SECONDS (22.8-39.4); INR 1.07 (0.85-1.17); PROTIME 13.4 SECONDS (11.6-15.0)
[2018-10-07] MEDS ORDERED: LEVAQUIN750 MG PO (09:37)
[2018-10-07] MEDS ORDERED: SULFAMETHOXAZOL1 TA3 PO (09:37)
[2018-10-07] MEDS ORDERED: AZELASTINE137 MCG/0. NASAL (09:38)
[2018-10-07 09:42] VITALS: Ht 175.3 cm; Wt 78.2 kg
--- NOTE | 2018-10-07 10:00 | NUR ---
PROCEDURE CANCELLED PER DR. HUGGINS, OFFICE WILL RESCHEDULE
== END 2018-10-07 10:10 | disposition home or self-care (01) ==
LOC: D.OPS 08:52 → D.PAN 12:00
PROVIDERS: Anesthesiology; ATTEND Surgery
DX: J18.9 Pneumonia, unspecified organism (principal); Z53.9 Procedure and treatment not carried out, unspecified reason; Z01.812 Encounter for preprocedural laboratory examination

== ENCOUNTER 2018-10-14 06:13 | Day surgery (SDC) | payer MEDICARE, BC ==
[~2018-10-14 06:13] MED LIST changes: +AZELASTINE137 MCG/0. NASAL; +SULFAMETHOXAZOL1 TA3 PO
[2018-10-14 06:33] LABS: HEMATOCRIT 34.2 % (42.0-54.0); HEMOGLOBIN 11.2 g/dL (13.5-17.5); MCH 28.6 pg (26.0-34.0); MCHC 32.7 g/dL (31.0-37.0); MCV 87.2 fL (80.0-100.0); MEAN PLATELET VOLUME 8.5 fL (7.4-10.4); RBC 3.92 10x6/uL (4.20-6.10); RDW 17.5 % (11.5-14.5); WBC 11.7 10x3/uL (4.8-10.8)
[2018-10-14 07:03] LABS: CALC OSMOLALITY 277 mosm/kg (275-300); CARBON DIOXIDE 26.4 mmol/L (21.0-32.0); CHLORIDE - SERUM 103 mmol/L (98-107); GLUCOSE 110 mg/dL (74-106); POTASSIUM - SERUM 4.4 mmol/L (3.5-5.1); SODIUM 137 mmol/L (136-145); UREA NITROGEN 22 mg/dL (7-18); eGFR NON AFRICAN AMERICAN 77 mL/min (90-120)
[2018-10-14 07:22] VITALS: BP 92/47; BMI 26.2
--- NOTE | 2018-10-14 11:17 | NUR ---
1145 INSTRUCTIONS GIVEN WITH EDUCATIONAL MATERIAL AND SUMMARY,NO RX IN CHART. NO COUGHING NOTED. PT MARSHALL. SISTER AT BEDSIDE. B/P SAME PRE ADMIT. 1OOOML FLUIDS GIVEN IN PACU
--- NOTE | 2018-10-14 11:36 | NUR ---
1135 IV REMOVED PRESSURE HELD AND DRESSING APPLIED
--- NOTE | 2018-10-16 11:49 | OP ---
PATIENT NAME: CHARITY PALMER MEDICAL RECORD: [id number] :41 LOCATION:D.OPS ADMISSION DATE: SURGEON: MICHAEL HUGGINS MD DATE OF OPERATION: 10/14/2018 PREOPERATIVE DIAGNOSES: 1. Postobstructive pneumonia. 2. History of lung cancer. 3. Indwelling right mainstem endobronchial stent causing postobstructive pneumonia. POSTOPERATIVE DIAGNOSES: 1. Postobstructive pneumonia. 2. History of lung cancer. 3. Indwelling right mainstem endobronchial stent causing postobstructive pneumonia. PROCEDURES: 1. Bronchoscopic retrieval of endobronchial stent. 2. Bronchoscopy with bronchoalveolar lavage. SURGEON: Michael Huggins MD BUSINESS IMPROVEMENT MANAGER: None. BLOOD LOSS: Minimal. ANESTHESIA: General. COMPLICATIONS: None. The risks, possible complications, and alternatives to the procedure were explained to the patient. He elects to proceed. OPERATIVE COURSE: The patient was conveyed to the operating room electively on 10/14/2018. General anesthesia was induced by the anesthesia staff. This was general endotracheal anesthesia. I advanced a well-lubricated bronchoscope down through the endotracheal tube. I first examined the left lung. There was mucopurulent debris in the segmental bronchi of the left lower lobe. I performed bronchoalveolar lavage of the entire left lung until all the segmental bronchi were opened and free of mucopurulent debris. I then examined the endobronchial stent on the right. It appeared occluded with mucus and mucopurulent debris. I advanced a biopsy forceps down through the bronchoscope. I grasped the suture at the end of the endobronchial stent. When I grasped it and pulled on it, it ripped in two. I then grasped the stent. I tried to remove the stent in 1 piece, but it began to fragment. I removed all of the fragmented portions. I took the same biopsy forceps and then I dissected around the stent. A toothed endoscopic grasper would not fit down through the working port of the bronchoscope. Therefore, in tandem, I advanced the bronchoscope and then the rat-tooth forceps. With the rat-tooth forceps, I was able to grasp the stent and remove the rest of it in its entirety. During this process, the stent became lodged in the endotracheal tube, so the endotracheal tube was removed. The patient was easily reintubated by the TOURS HOSTESS. I then advanced the bronchoscope again. I performed a bronchoalveolar lavage of the OPERATIVE REPORT [id number] CHARITY PALMER right lung. There was a good bit of purulence distal to where the endobronchial stent had been placed. There was no residual endobronchial stent that I could identify. Growth through the interstices of the stent could easily be seen. I performed bronchoalveolar lavage with normal saline until the segmental bronchi were free of mucopurulent debris and were widely open. Fluid was obtained for culture and sensitivity. The bronchoscope was then removed. The patient was extubated and moved to post-anesthesia care unit. A chest x-ray was performed. I noted no evidence of a postoperative complication on the chest x-ray. TRANSINT:[id number] Voice Confirmation ID: [id number] DOCUMENT ID: [id number] MICHAEL HUGGINS MD at 1149 CC: TAMEKA MORGAN MD and KAREEM HARVEY [id number] DICTATION DATE: 10/14/18 1050 MODELING AGENCY MANAGER: 10/14/18 1204 [facility] 10/14/18 [facility] [address] [place] [address]
== END 2018-10-14 11:58 | disposition home or self-care (01) ==
LOC: D.OPS 06:13
PROVIDERS: Anesthesiology; ATTEND Surgery
DX: J18.8 Other pneumonia, unspecified organism (principal); Z85.118 Personal history of other malignant neoplasm of bronchus and lung; T85.898A Other specified complication of other internal prosthetic devices, implants and grafts, initial encounter; Z01.812 Encounter for preprocedural laboratory examination

== ENCOUNTER → 2018-10-18 10:40 | Outpatient (CLI) | payer MEDICARE, BC ==
[2018-10-14 07:22] VITALS: BMI 26.2
== END | disposition home or self-care (01) ==
LOC: D.RAD 10:40
PROVIDERS: ATTEND Internal Medicine Cardiovascular Disease
DX: J90 Pleural effusion, not elsewhere classified (principal)

== ENCOUNTER → 2018-11-14 09:22 | Outpatient (CLI) | payer MEDICARE, BC | END | disposition home or self-care (01) | LOC: D.RAD 09:22 | PROVIDERS: ATTEND Internal Medicine Cardiovascular Disease | DX: J18.9 Pneumonia, unspecified organism (principal) ==

== ENCOUNTER → 2018-12-26 09:45 | Outpatient (CLI) | payer MEDICARE, BC | END | disposition home or self-care (01) | LOC: D.RAD 09:45 | PROVIDERS: ATTEND Internal Medicine Cardiovascular Disease | DX: C34.90 Malignant neoplasm of unspecified part of unspecified bronchus or lung (principal) ==